=== PATIENT | male | born 1950 | race Caucasian/White ===

== ENCOUNTER 2016-11-28 16:51 | Observation (INO) | payer MEDICARE, OTHER ==
[~2016-11-28] VITALS: Ht 170.2 cm; Wt 114.8 kg
[~2016-11-28 16:51] MED LIST: (None)10 MG OR; ACETIC ACID2 % AU; ACTOPLUS M15 MG/850 OR; ALLOPURINOL300 MG OR; ALLOPURINOL300 MG PO; AMILORIDE5 MG PO; ARTIFICIAL TEARS OP; ASPIRIN EC81 MG PO; ATENOLOL50 MG PO; B-12500 MCG SL; BAYER ASA325 MG OR; CALCI PO; CETRAXAL0.2 % AS; CIPRO500 MG OR; CIPRO500 MG PO; CIPRODEX1 ML AS; CIPROFLOXACN500 MG PO; CLINDAMYCIN300 MG PO; COLCHICINE0.6 MG OR; COLCHICINE0.6 MG PO; COLCRYS0.6 MG PO; DOXAZOSIN4 MG OR; DOXAZOSIN4 MG PO; FISH OIL1000 MG PO; GLIMEPIRIDE2 MG PO; INDOCIN50 MG/CAP PO; INDOMETHACIN50 MG PO; JANUVIA100 MG PO; LIPITOR10 MG PO; LIPITOR20 MG OR; LIPITOR40 M1 PO; LIPITOR40 MG PO; LISINOPRIL10 MG PO; LORTAB 7.5 PO; LORTAB5 PO; MAGNESIUM250 M1 PO; METFORMIN1000 MG PO; MULTI COMPLETE PO; NITROSTAT0.4 MG SL; ONE TOUCH ULTRA 100 XX; ONETOUCH DELICA30 G SC; OXYCO/APAP1 TA5 PO; PERCOCET 5/325M1 TAB OR; PLAVIX75 MG PO; SKELAXIN800 MG PO; SLOW MAGNESIUM PO; STOOL SOFTEN1 TAB OR; TIZANIDINE4 MG PO; TRICOR48 MG OR; VIAGRA100 MG PO; VITAMIN B-121000 MCG PO; VITAMIN D2000 UNI1 OR; ZITHROMAX250 MG PO
[2016-11-28 17:52] LABS: HEMATOCRIT 29.4 % (39.0-50.0); HEMOGLOBIN 9.7 g/dl (14.0-18.0); IMMATURE GRANULOCYTES 0.8 % (0.0-1.0); MEAN CELL VOLUME 93.9 fL CALC (80.0-100.0); NEUT# 1.63 thou/uL (1.82-7.42); RED BLOOD COUNT 3.13 mill/uL (4.70-6.10)
[2016-11-28 18:58] LABS: ALBUMIN 3.1 g/dL (3.2-5.0); BILIRUBIN, TOTAL 0.9 mg/dL (0.0-1.4); CALCIUM 9.2 mg/dL (8.4-10.2); CREATININE 1.6 mg/dL (0.7-1.3); POTASSIUM 4.2 mmol/l (3.5-5.1); TOTAL PROTEIN 6.3 g/dL (6.3-8.2)
[2016-11-28] MEDS ORDERED: HYDROCHLOROT25 MG PO (19:26)
[2016-11-28 19:30] VITALS: BP 146/73
[2016-11-28 21:43] LABS: URINE BILIRUBIN - DIPSTICK NEGATIVE (NEGATIVE); URINE BLOOD DIPSTICK LARGE (NEGATIVE); URINE CLARITY CLEAR; URINE COLOR YELLOW; URINE GLUCOSE - DIPSTICK NEGATIVE (NEGATIVE); URINE KETONE NEGATIVE (NEGATIVE); URINE LEUK ESTERASE NEGATIVE (NEGATIVE); URINE NITRITE - DIPSTICK NEGATIVE (Negative); URINE PROTEIN - DIPSTICK TRACE mg/dL (NEG-TRACE); URINE UROBILINOGEN - DIPSTICK 0.2 E.U./dL (0.2)
[2016-11-28 21:57] LABS: URINE RBC TNTC RBC/hpf (0-5); URINE SQUAMOUS EPITHELIAL CELL FEW EPI/hpf (0-FEW)
[2016-11-29 00:22] VITALS: BP 140/61
[2016-11-29 04:37] VITALS: BP 145/67
[2016-11-29 06:33] LABS: HEMATOCRIT 28.6 % (39.0-50.0); HEMOGLOBIN 9.4 g/dl (14.0-18.0); IMMATURE GRANULOCYTES 0.4 % (0.0-1.0); MEAN CORPUSCULAR HGB 31.2 pG CALC (26.0-32.0); MEAN CORPUSCULAR HGB CONC 32.9 g/L CALC (32.0-36.0); NEUT# 1.51 thou/uL (1.82-7.42); RED BLOOD COUNT 3.01 mill/uL (4.70-6.10); RED CELL DISTRI WIDTH 15.9 % (11.5-15.5)
[2016-11-29 06:48] LABS: ANION GAP 12 (6-22 (CALC)); BUN 29 mg/dL (8-23); BUN/CREATININE RATIO 24 (12-20 (CALC)); CALCIUM 9.3 mg/dL (8.4-10.2); CARBON DIOXIDE 19 mmol/l (22-30); CHLORIDE 113 mmol/l (95-108); CREATININE 1.2 mg/dL (0.7-1.3); GFR 60 ML/MIN (>=60 (CALC)); GFR FOR AFR.AMER. > 60 ML/MIN (>=60 (CALC)); GLUCOSE 83 mg/dL (82-115); POTASSIUM 3.8 mmol/l (3.5-5.1); SODIUM 140 mmol/l (137-146)
[2016-11-29 08:15] VITALS: BP 121/53
[2016-11-29 10:36] LABS: CHOLESTEROL HDL RATIO 2.7 (<4.4 (CALC))
[2016-11-29 11:10] VITALS: BP 149/74
[2016-11-29 12:25] VITALS: BP 118/60; BP 123/58; BP 140/66
[2016-11-29] MEDS ORDERED: DOXAZOSIN4 MG PO (13:03)
== END 2016-11-29 14:53 | disposition home or self-care (01) ==
LOC: ED 16:51 → ED-I 18:29 → ED 18:45 → ICU 18:46 → MS2 18:46
PROVIDERS: Emergency Medicine; Nurse Practitioner Family; ADMIT Internal Medicine; ATTEND Internal Medicine
DX: E86.0 Dehydration (principal); I13.10 Hypertensive heart and chronic kidney disease without heart failure, with stage 1 through stage 4 chronic kidney disease, or unspecified chronic kidney disease; N18.2 Chronic kidney disease, stage 2 (mild); E11.22 Type 2 diabetes mellitus with diabetic chronic kidney disease; I25.10 Atherosclerotic heart disease of native coronary artery without angina pectoris; M10.9 Gout, unspecified; E78.5 Hyperlipidemia, unspecified; H54.8 Legal blindness, as defined in USA; D63.1 Anemia in chronic kidney disease; N17.9 Acute kidney failure, unspecified; D61.818 Other pancytopenia; N40.0 Benign prostatic hyperplasia without lower urinary tract symptoms; R07.89 Other chest pain; E83.42 Hypomagnesemia; E87.6 Hypokalemia; Z95.5 Presence of coronary angioplasty implant and graft
CPT/HCPCS: J0692

== ENCOUNTER 2018-01-30 20:21 | Inpatient (IN) | payer MEDICARE, OTHER ==
[~2018-01-30] VITALS: Ht 170.2 cm; Wt 98.1 kg
[~2018-01-30 20:21] MED LIST changes: +HYDROCHLOROT25 MG PO
[2018-01-30 22:02] LABS: ALBUMIN 3.1 g/dL (3.2-5.0); BILIRUBIN, TOTAL 0.7 mg/dL (0.0-1.4); CREATININE 1.8 mg/dL (0.7-1.3); TOTAL PROTEIN 6.4 g/dL (6.3-8.2)
[2018-01-30 22:15] LABS: POTASSIUM 7.3 mmol/l (3.5-5.1)
[2018-01-30 22:17] LABS: HEMATOCRIT 28.8 % (39.0-50.0); HEMOGLOBIN 9.5 g/dl (14.0-18.0); IMMATURE GRANULOCYTES 0.5 % (0.0-5.0); MEAN CELL VOLUME 99.3 fL CALC (80.0-100.0); MEAN CORPUSCULAR HGB 32.8 pG CALC (26.0-32.0); NEUT# 1.33 thou/uL (1.82-7.42); RED BLOOD COUNT 2.9 mill/uL (4.70-6.10); RED CELL DISTRI WIDTH 15.9 % (11.5-15.5)
[2018-01-31] VITALS (7 sets, daily range): BP systolic 116–141; BP diastolic 60–70
[2018-01-31 05:31] LABS: CREATININE 1.5 mg/dL (0.7-1.3)
[2018-01-31 05:34] LABS: POTASSIUM 6.5 mmol/l (3.5-5.1)
[2018-01-31 05:56] LABS: HEMATOCRIT 26.6 % (39.0-50.0); HEMOGLOBIN 8.7 g/dl (14.0-18.0); IMMATURE GRANULOCYTES 1.2 % (0.0-5.0); MEAN CORPUSCULAR HGB 32.7 pG CALC (26.0-32.0); MEAN CORPUSCULAR HGB CONC 32.7 g/L CALC (32.0-36.0); RED BLOOD COUNT 2.66 mill/uL (4.70-6.10); RED CELL DISTRI WIDTH 15.8 % (11.5-15.5)
[2018-01-31 05:57] LABS: PLATELET COUNT 35 thou/uL (130-400)
[2018-01-31 05:58] LABS: ACANTHOCYTES FEW; BASOPHIL 1.8 % (0-3); EOSINOPHIL 1.2 % (0-8); LYMPH 21.5 % (15-41); MANUAL DIFFERENTIAL YES; MONOCYTE 12.3 % (2-13); OVALOCYTES FEW; PLATELET ESTIMATE MARKED DECREASE; TEAR DROP CELLS FEW
[2018-01-31 10:30] LABS: HEMATOCRIT 28.7 % (39.0-50.0); HEMOGLOBIN 9.3 g/dl (14.0-18.0); MEAN CELL VOLUME 101.8 fL CALC (80.0-100.0); MEAN CORPUSCULAR HGB CONC 32.4 g/L CALC (32.0-36.0); NEUT# 0.99 thou/uL (1.82-7.42); RED BLOOD COUNT 2.82 mill/uL (4.70-6.10); RED CELL DISTRI WIDTH 15.9 % (11.5-15.5)
[2018-01-31 11:02] LABS: BUN 28 mg/dL (8-23); BUN/CREATININE RATIO 20 (12-20 (CALC)); CARBON DIOXIDE 16 mmol/l (22-30); CHLORIDE 119 mmol/l (95-108); CREATININE 1.4 mg/dL (0.7-1.3); GFR 50 ML/MIN (>=60 (CALC)); GFR FOR AFR.AMER. > 60 ML/MIN (>=60 (CALC)); SODIUM 142 mmol/l (137-146)
[2018-01-31 11:04] LABS: ANION GAP 12 (6-22 (CALC)); POTASSIUM 5.4 mmol/l (3.5-5.1)
[2018-01-31 14:02] LABS: INTERNATIONAL NORMALIZED RATIO 2.7 RATIO (0.7-1.3); PROTHROMBIN TIME 28.4 SECONDS (9.0-12.5)
[2018-02-01 04:05] VITALS: BP 113/69
[2018-02-01 05:22] LABS: HEMOGLOBIN 8.6 g/dl (14.0-18.0); MEAN CELL VOLUME 98.9 fL CALC (80.0-100.0); MEAN CORPUSCULAR HGB 32.7 pG CALC (26.0-32.0); MEAN CORPUSCULAR HGB CONC 33.1 g/L CALC (32.0-36.0); NEUT# 0.84 thou/uL (1.82-7.42); RED BLOOD COUNT 2.63 mill/uL (4.70-6.10); RED CELL DISTRI WIDTH 15.6 % (11.5-15.5)
[2018-02-01 05:33] LABS: ALBUMIN 2.3 g/dL (3.2-5.0); ALKALINE PHOSPHATASE 207 u/l (38-126); ANION GAP 10 (6-22 (CALC)); BILIRUBIN, TOTAL 0.7 mg/dL (0.0-1.4); BUN 25 mg/dL (8-23); BUN/CREATININE RATIO 19 (12-20 (CALC)); CARBON DIOXIDE 17 mmol/l (22-30); CHLORIDE 118 mmol/l (95-108); CREATININE 1.3 mg/dL (0.7-1.3); GFR 55 ML/MIN (>=60 (CALC)); GFR FOR AFR.AMER. > 60 ML/MIN (>=60 (CALC)); MAGNESIUM 1.3 mg/dL (1.6-2.3); SGOT/AST 50 u/l (19-48); SODIUM 139 mmol/l (137-146); TOTAL PROTEIN 5.1 g/dL (6.3-8.2)
[2018-02-01 08:11] VITALS: BP 117/60
[2018-02-01 11:30] VITALS: BP 119/61
[2018-02-01 15:51] VITALS: BP 134/65
== END 2018-02-01 15:55 | disposition home or self-care (01) | DRG 641 ==
LOC: ED 20:21 → ED-I 23:40 → ED 01-31 00:14 → MS2 01-31 00:15
PROVIDERS: Emergency Medicine; Internal Medicine; ADMIT Internal Medicine Nephrology; ATTEND Internal Medicine Nephrology
DX: E87.5 Hyperkalemia (principal); K76.6 Portal hypertension; D61.818 Other pancytopenia; N17.9 Acute kidney failure, unspecified; E83.42 Hypomagnesemia; E87.2 Acidosis; I12.9 Hypertensive chronic kidney disease with stage 1 through stage 4 chronic kidney disease, or unspecified chronic kidney disease; E11.22 Type 2 diabetes mellitus with diabetic chronic kidney disease; N18.2 Chronic kidney disease, stage 2 (mild); T50.0X5A Adverse effect of mineralocorticoids and their antagonists, initial encounter; I25.10 Atherosclerotic heart disease of native coronary artery without angina pectoris; I48.0 Paroxysmal atrial fibrillation; K74.60 Unspecified cirrhosis of liver; R16.0 Hepatomegaly, not elsewhere classified; D70.9 Neutropenia, unspecified; E78.5 Hyperlipidemia, unspecified; M10.9 Gout, unspecified; G47.33 Obstructive sleep apnea (adult) (pediatric); N40.0 Benign prostatic hyperplasia without lower urinary tract symptoms; Z79.02 Long term (current) use of antithrombotics/antiplatelets; Z95.5 Presence of coronary angioplasty implant and graft; Z79.01 Long term (current) use of anticoagulants

== ENCOUNTER → 2018-05-31 | Outpatient (REF) | payer MEDICARE, OTHER ==
[2018-05-31 07:59] LABS: HEMATOCRIT 30.9 % (39.0-50.0); MEAN CELL VOLUME 93.6 fL CALC (80.0-100.0); MEAN CORPUSCULAR HGB 30.3 pG CALC (26.0-32.0); MEAN CORPUSCULAR HGB CONC 32.4 g/L CALC (32.0-36.0); RED BLOOD COUNT 3.3 mill/uL (4.70-6.10); RED CELL DISTRI WIDTH 15.8 % (11.5-15.5)
[2018-05-31 08:47] LABS: ALBUMIN 3.3 g/dL (3.2-5.0); BILIRUBIN, TOTAL 0.8 mg/dL (0.0-1.4); CREATININE 1.7 mg/dL (0.7-1.3); POTASSIUM 3.5 mmol/l (3.5-5.1); TOTAL PROTEIN 6.2 g/dL (6.3-8.2)
[2018-05-31 09:08] LABS: TSH, 3RD GENERATION 1.86 uIU/mL (0.47 - 4.68)
== END | disposition home or self-care (01) ==
LOC: LAB 07:26
PROVIDERS: ATTEND Nurse Practitioner Adult Health
DX: E13.610 Other specified diabetes mellitus with diabetic neuropathic arthropathy (principal); K74.69 Other cirrhosis of liver; N18.3 Chronic kidney disease, stage 3 (moderate)

== ENCOUNTER 2018-10-15 09:29 | Observation (INO) | payer MEDICARE, OTHER ==
[~2018-10-15] VITALS: Ht 170.2 cm; Wt 98.9 kg
[2018-10-15] MEDS ORDERED: FUROSEMIDE40 MG PO (10:23)
[2018-10-15] MEDS ORDERED: GLIMEPIRIDE2 MG PO (10:24)
[2018-10-15] MEDS ORDERED: ATENOLOL25 MG PO (10:24)
[2018-10-15] MEDS ORDERED: SINGULAIR10 MG PO (10:25)
[2018-10-15] MEDS ORDERED: VITAMIN B-1100 M1 PO (10:25)
[2018-10-15] MEDS ORDERED: ALLOPURINOL300 MG PO (10:25)
[2018-10-15] MEDS ORDERED: OCUVITE PO (10:26)
[2018-10-15] MEDS ORDERED: ASPIRIN LOW DOS81 M1 PO (10:27)
[2018-10-15 11:00] LABS: HEMATOCRIT 31.4 % (39.0-50.0); HEMOGLOBIN 10.5 g/dl (14.0-18.0); MEAN CELL VOLUME 92.6 fL CALC (80.0-100.0); MEAN CORPUSCULAR HGB CONC 33.4 g/L CALC (32.0-36.0); NEUT# 2.07 thou/uL (1.82-7.42); RED BLOOD COUNT 3.39 mill/uL (4.70-6.10); RED CELL DISTRI WIDTH 15.7 % (11.5-15.5)
[2018-10-15 11:24] LABS: ALBUMIN 3.6 g/dL (3.2-5.0); BILIRUBIN, TOTAL 0.8 mg/dL (0.0-1.4); CREATININE 2.1 mg/dL (0.7-1.3); POTASSIUM 3.8 mmol/l (3.5-5.1); TOTAL PROTEIN 6.9 g/dL (6.3-8.2)
[2018-10-15 12:38] LABS: URINE BILIRUBIN - DIPSTICK NEGATIVE (NEGATIVE); URINE BLOOD DIPSTICK SMALL (NEGATIVE); URINE COLOR YELLOW; URINE GLUCOSE - DIPSTICK NEGATIVE (NEGATIVE); URINE KETONE NEGATIVE (NEGATIVE); URINE LEUK ESTERASE NEGATIVE (Negative); URINE NITRITE - DIPSTICK NEGATIVE (Negative); URINE PH 7.5 (4.5-8.0); URINE PROTEIN - DIPSTICK NEGATIVE (NEG-TRACE); URINE UROBILINOGEN - DIPSTICK 0.2 E.U./dL (0.2)
[2018-10-15 12:41] LABS: URINE CLARITY SL CLOUDY; URINE RBC 0-2 RBC/hpf (0-5)
[2018-10-15 15:30] VITALS: BP 156/65
[2018-10-15] MEDS ORDERED: PROTONIX40 M2 PO (16:50)
[2018-10-15 19:05] VITALS: BP 148/64
[2018-10-15 23:47] VITALS: BP 147/75
[2018-10-16 03:28] VITALS: BP 125/50
[2018-10-16 03:59] LABS: HEMATOCRIT 27.6 % (39.0-50.0); HEMOGLOBIN 9.2 g/dl (14.0-18.0); IMMATURE GRANULOCYTES 0.3 % (0.0-5.0); MEAN CELL VOLUME 92.6 fL CALC (80.0-100.0); MEAN CORPUSCULAR HGB 30.9 pG CALC (26.0-32.0); MEAN CORPUSCULAR HGB CONC 33.3 g/L CALC (32.0-36.0); NEUT# 2.03 thou/uL (1.82-7.42); RED BLOOD COUNT 2.98 mill/uL (4.70-6.10); RED CELL DISTRI WIDTH 15.8 % (11.5-15.5)
[2018-10-16 04:08] LABS: BILIRUBIN, TOTAL 0.9 mg/dL (0.0-1.4); CREATININE 1.6 mg/dL (0.7-1.3); MAGNESIUM 2.1 mg/dL (1.6-2.3); POTASSIUM 3.5 mmol/l (3.5-5.1); TOTAL PROTEIN 6.2 g/dL (6.3-8.2)
[2018-10-16 08:00] VITALS: BP 140/96
[2018-10-16 11:15] VITALS: BP 155/67
[2018-10-16 17:13] VITALS: BP 131/61
[2018-10-16 19:10] VITALS: BP 148/59
[2018-10-16 23:00] VITALS: BP 147/60
[2018-10-17 03:53] VITALS: BP 125/53
[2018-10-17 05:23] LABS: HEMATOCRIT 29.3 % (39.0-50.0); HEMOGLOBIN 9.7 g/dl (14.0-18.0); MEAN CELL VOLUME 94.2 fL CALC (80.0-100.0); MEAN CORPUSCULAR HGB 31.2 pG CALC (26.0-32.0); MEAN CORPUSCULAR HGB CONC 33.1 g/L CALC (32.0-36.0); NEUT# 1.57 thou/uL (1.82-7.42); RED BLOOD COUNT 3.11 mill/uL (4.70-6.10); RED CELL DISTRI WIDTH 15.9 % (11.5-15.5)
[2018-10-17 05:35] LABS: ALBUMIN 2.8 g/dL (3.2-5.0); ALKALINE PHOSPHATASE 173 u/l (38-126); ANION GAP 9 (6-22 (CALC)); BILIRUBIN, TOTAL 0.8 mg/dL (0.0-1.4); BUN 30 mg/dL (8-23); BUN/CREATININE RATIO 24 (12-20 (CALC)); CARBON DIOXIDE 19 mmol/l (22-30); CHLORIDE 117 mmol/l (95-108); CREATININE 1.3 mg/dL (0.7-1.3); GFR 55 ML/MIN (>=60 (CALC)); GFR FOR AFR.AMER. > 60 ML/MIN (>=60 (CALC)); MAGNESIUM 1.8 mg/dL (1.6-2.3); POTASSIUM 3.9 mmol/l (3.5-5.1); SGOT/AST 45 u/l (19-48); SODIUM 141 mmol/l (137-146); TOTAL PROTEIN 5.7 g/dL (6.3-8.2)
[2018-10-17 08:00] VITALS: BP 141/67
[2018-10-17 10:45] VITALS: BP 155/67
[2018-10-17] MEDS ORDERED: GENERLAC10 GM/15 M PO (13:43)
== END 2018-10-17 14:03 | disposition home or self-care (01) ==
LOC: ED 09:29 → ED-I 13:22 → ED 13:45 → MS2 13:47
PROVIDERS: Emergency Medicine; ADMIT Internal Medicine Nephrology; ATTEND Internal Medicine Nephrology
DX: K72.90 Hepatic failure, unspecified without coma (principal); N17.9 Acute kidney failure, unspecified; E86.0 Dehydration; E87.2 Acidosis; K74.60 Unspecified cirrhosis of liver; E72.20 Disorder of urea cycle metabolism, unspecified; I12.9 Hypertensive chronic kidney disease with stage 1 through stage 4 chronic kidney disease, or unspecified chronic kidney disease; E11.22 Type 2 diabetes mellitus with diabetic chronic kidney disease; N18.3 Chronic kidney disease, stage 3 (moderate); D63.1 Anemia in chronic kidney disease; D61.818 Other pancytopenia; I25.10 Atherosclerotic heart disease of native coronary artery without angina pectoris; H54.8 Legal blindness, as defined in USA; I48.2 Chronic atrial fibrillation; M10.9 Gout, unspecified; E83.42 Hypomagnesemia; E87.5 Hyperkalemia; N40.0 Benign prostatic hyperplasia without lower urinary tract symptoms; R97.0 Elevated carcinoembryonic antigen [CEA]; Z95.5 Presence of coronary angioplasty implant and graft; Z79.84 Long term (current) use of oral hypoglycemic drugs; Z79.01 Long term (current) use of anticoagulants

== ENCOUNTER 2018-12-25 15:31 | Observation (INO) | payer MEDICARE, OTHER ==
[~2018-12-25] VITALS: Ht 170.2 cm; Wt 99.8 kg
[~2018-12-25 15:31] MED LIST changes: +ASPIRIN LOW DOS81 M1 PO; +ATENOLOL25 MG PO; -CALCI PO; +GENERLAC10 GM/15 M PO; +LASIX40 MG PO; +OCUVITE PO; +PROTONIX40 M2 PO; +SINGULAIR10 MG PO; -SLOW MAGNESIUM PO; +SLOW-MAG PO; +VITAMIN B-1100 M1 PO
[2018-12-25 16:55] LABS: HEMATOCRIT 31.7 % (39.0-50.0); HEMOGLOBIN 10.6 g/dl (14.0-18.0); IMMATURE GRANULOCYTES 0.3 % (0.0-5.0); MEAN CELL VOLUME 96.1 fL CALC (80.0-100.0); MEAN CORPUSCULAR HGB 32.1 pG CALC (26.0-32.0); MEAN CORPUSCULAR HGB CONC 33.4 g/L CALC (32.0-36.0); NEUT# 2.64 thou/uL (1.82-7.42); RED BLOOD COUNT 3.3 mill/uL (4.70-6.10); RED CELL DISTRI WIDTH 15.5 % (11.5-15.5)
[2018-12-25] MEDS ORDERED: ATORVASTATIN CA20 MG PO (17:00)
[2018-12-25] MEDS ORDERED: MULTIVITAMI1 PO (17:01)
[2018-12-25] MEDS ORDERED: ADLT ASA LOW81 MG PO (17:02)
[2018-12-25] MEDS ORDERED: [UNRECOGNIZED DRUG - OTHER] PO (17:03)
[2018-12-25 17:06] LABS: URINE BILIRUBIN - DIPSTICK NEGATIVE (NEGATIVE); URINE BLOOD DIPSTICK MODERATE (NEGATIVE); URINE COLOR YELLOW; URINE GLUCOSE - DIPSTICK NEGATIVE (NEGATIVE); URINE KETONE NEGATIVE (NEGATIVE); URINE LEUK ESTERASE NEGATIVE (NEGATIVE); URINE NITRITE - DIPSTICK NEGATIVE (Negative); URINE PROTEIN - DIPSTICK NEGATIVE (NEG-TRACE); URINE UROBILINOGEN - DIPSTICK 0.2 E.U./dL (0.2)
[2018-12-25 17:08] LABS: URINE WBC 0-2 WBC/hpf (0-5)
[2018-12-25 17:27] LABS: ALBUMIN 3.4 g/dL (3.2-5.0); CREATININE 1.5 mg/dL (0.7-1.3); INTERNATIONAL NORMALIZED RATIO 1.2 RATIO (0.7-1.3); PROTHROMBIN TIME 12.9 SECONDS (9.0-12.5); TOTAL PROTEIN 6.6 g/dL (6.3-8.2)
[2018-12-25 17:30] LABS: BILIRUBIN, TOTAL 1.5 mg/dL (0.0-1.4)
[2018-12-25 18:30] VITALS: BP 160/73
[2018-12-25 23:35] VITALS: BP 138/73
[2018-12-26] VITALS (15 sets, daily range): BP systolic 123–160; BP diastolic 52–74
[2018-12-26 04:51] LABS: HEMATOCRIT 31.4 % (39.0-50.0); HEMOGLOBIN 10.6 g/dl (14.0-18.0); MEAN CORPUSCULAR HGB 32.4 pG CALC (26.0-32.0); MEAN CORPUSCULAR HGB CONC 33.8 g/L CALC (32.0-36.0); RED BLOOD COUNT 3.27 mill/uL (4.70-6.10); RED CELL DISTRI WIDTH 15.4 % (11.5-15.5)
[2018-12-26 05:05] LABS: ANION GAP 10 (6-22 (CALC)); BUN 32 mg/dL (8-23); BUN/CREATININE RATIO 23 (12-20 (CALC)); CARBON DIOXIDE 24 mmol/l (22-30); CHLORIDE 112 mmol/l (95-108); CREATININE 1.4 mg/dL (0.7-1.3); GFR 50 ML/MIN (>=60 (CALC)); GFR FOR AFR.AMER. > 60 ML/MIN (>=60 (CALC)); POTASSIUM 3.9 mmol/l (3.5-5.1); SODIUM 142 mmol/l (137-146)
[2018-12-26 10:01] LABS: HEMATOCRIT 31.5 % (39.0-50.0); HEMOGLOBIN 10.6 g/dl (14.0-18.0); IMMATURE GRANULOCYTES 0.3 % (0.0-5.0); MEAN CELL VOLUME 95.2 fL CALC (80.0-100.0); MEAN CORPUSCULAR HGB CONC 33.7 g/L CALC (32.0-36.0); NEUT# 1.81 thou/uL (1.82-7.42); RED BLOOD COUNT 3.31 mill/uL (4.70-6.10); RED CELL DISTRI WIDTH 15.4 % (11.5-15.5)
[2018-12-26 11:26] LABS: HEMATOCRIT 29.9 % (39.0-50.0); HEMOGLOBIN 9.9 g/dl (14.0-18.0); MEAN CELL VOLUME 97.4 fL CALC (80.0-100.0); MEAN CORPUSCULAR HGB 32.2 pG CALC (26.0-32.0); MEAN CORPUSCULAR HGB CONC 33.1 g/L CALC (32.0-36.0); NEUT# 1.72 thou/uL (1.82-7.42); RED BLOOD COUNT 3.07 mill/uL (4.70-6.10); RED CELL DISTRI WIDTH 15.6 % (11.5-15.5)
[2018-12-27 00:32] VITALS: BP 130/66
[2018-12-27 04:49] VITALS: BP 126/70
[2018-12-27 05:35] LABS: HEMATOCRIT 33.4 % (39.0-50.0); MEAN CELL VOLUME 97.1 fL CALC (80.0-100.0); MEAN CORPUSCULAR HGB CONC 32.9 g/L CALC (32.0-36.0); RED BLOOD COUNT 3.44 mill/uL (4.70-6.10); RED CELL DISTRI WIDTH 15.5 % (11.5-15.5)
[2018-12-27 05:38] LABS: CREATININE 1.5 mg/dL (0.7-1.3); POTASSIUM 4.2 mmol/l (3.5-5.1)
[2018-12-27 08:00] VITALS: BP 127/53
[2018-12-27] MEDS ORDERED: PERCOCET 5/325M1 TAB PO (09:02)
[2018-12-27] MEDS ORDERED: CLARITIN10 M2 PO (09:13)
[2018-12-27] MEDS ORDERED: FLONASE AL50 MCG/ACT NAB (09:13)
[2018-12-27 09:22] VITALS: BP 127/53
== END 2018-12-27 12:30 | disposition home or self-care (01) ==
LOC: ED 15:31 → ED-I 16:44 → ED 17:01 → MS2 17:02
PROVIDERS: Family Medicine; Nurse Anesthetist, Certified Registered; Surgery; ADMIT Internal Medicine; ATTEND Internal Medicine
PROC: 30233R1 Transfusion of Nonautologous Platelets into Peripheral Vein, Percutaneous Approach (ICD-10-PCS; principal; 2018-12-26)
PROC: 30233R1 Transfusion of Nonautologous Platelets into Peripheral Vein, Percutaneous Approach (ICD-10-PCS; 2018-12-26)
PROC: 0WUF0JZ Supplement Abdominal Wall with Synthetic Substitute, Open Approach (ICD-10-PCS; 2018-12-26)
DX: K43.0 Incisional hernia with obstruction, without gangrene (principal); K42.9 Umbilical hernia without obstruction or gangrene; E11.22 Type 2 diabetes mellitus with diabetic chronic kidney disease; I12.9 Hypertensive chronic kidney disease with stage 1 through stage 4 chronic kidney disease, or unspecified chronic kidney disease; N18.2 Chronic kidney disease, stage 2 (mild); K74.60 Unspecified cirrhosis of liver; D61.818 Other pancytopenia; R16.2 Hepatomegaly with splenomegaly, not elsewhere classified; D63.1 Anemia in chronic kidney disease; I48.91 Unspecified atrial fibrillation; I25.10 Atherosclerotic heart disease of native coronary artery without angina pectoris; E78.5 Hyperlipidemia, unspecified; H54.8 Legal blindness, as defined in USA; Z79.82 Long term (current) use of aspirin; Z95.5 Presence of coronary angioplasty implant and graft; Z79.84 Long term (current) use of oral hypoglycemic drugs
CPT/HCPCS: P9034; Q9967

== ENCOUNTER 2019-06-24 | Emergency (ER) | payer MEDICARE, OTHER ==
[~2019-06-24] MED LIST changes: +ADLT ASA LOW81 MG PO; +ATORVASTATIN CA20 MG PO; +CLARITIN10 M2 PO; +FLONASE AL50 MCG/ACT NAB; +MULTIVITAMI1 PO; +PERCOCET 5/325M1 TAB PO; +[UNRECOGNIZED DRUG - OTHER] PO
== END 2019-06-24 10:26 | disposition home or self-care (01) ==
DX: M25.561 Pain in right knee (principal); S90.01XA Contusion of right ankle, initial encounter; E11.22 Type 2 diabetes mellitus with diabetic chronic kidney disease; I12.9 Hypertensive chronic kidney disease with stage 1 through stage 4 chronic kidney disease, or unspecified chronic kidney disease; N18.9 Chronic kidney disease, unspecified; I48.91 Unspecified atrial fibrillation; I25.10 Atherosclerotic heart disease of native coronary artery without angina pectoris; W01.0XXA Fall on same level from slipping, tripping and stumbling without subsequent striking against object, initial encounter; Y92.009 Unspecified place in unspecified non-institutional (private) residence as the place of occurrence of the external cause; Z79.84 Long term (current) use of oral hypoglycemic drugs; Z95.5 Presence of coronary angioplasty implant and graft

== ENCOUNTER 2019-09-02 18:33 | Observation (INO) | payer MEDICARE, OTHER ==
[~2019-09-02] VITALS: Ht 170.2 cm; Wt 104.0 kg
--- NOTE | 2019-09-02 18:54 | NUR ---
PT TO ROOM FOR EXAM
--- NOTE | 2019-09-02 19:15 | NUR ---
IV STARTED/LABS DRAWN/MEDS GIVEN. PT RESTING. AT BEDSIDE. REGISTRATION AT BEDSIDE.
[2019-09-02 19:21] LABS: HEMATOCRIT 31.8 % (39.0-50.0); HEMOGLOBIN 10.5 g/dl (14.0-18.0); MEAN CELL VOLUME 94.4 fL CALC (80.0-100.0); MEAN CORPUSCULAR HGB 31.2 pG CALC (26.0-32.0); NEUT# 1.92 thou/uL (1.82-7.42); RED BLOOD COUNT 3.37 mill/uL (4.70-6.10); RED CELL DISTRI WIDTH 15.5 % (11.5-15.5)
[2019-09-02 19:40] LABS: ACT PARTIAL THROMBO TIME 29.4 SECONDS (20.0-32.5); INTERNATIONAL NORMALIZED RATIO 1.2 RATIO (0.7-1.3); PROTHROMBIN TIME 12.7 SECONDS (9.0-12.5)
[2019-09-02 19:41] LABS: ALBUMIN 3.3 g/dL (3.2-5.0); ALKALINE PHOSPHATASE 201 u/l (38-126); AMYLASE 59 u/l (30-110); ANION GAP 8 (6-22 (CALC)); BILIRUBIN, TOTAL 1.2 mg/dL (0.0-1.4); BUN 37 mg/dL (8-23); BUN/CREATININE RATIO 23 (12-20 (CALC)); CARBON DIOXIDE 22 mmol/l (22-30); CHLORIDE 112 mmol/l (95-108); CREATININE 1.6 mg/dL (0.7-1.3); GFR 43 ML/MIN (>=60 (CALC)); GFR FOR AFR.AMER. 52 ML/MIN (>=60 (CALC)); LIPASE 256 u/l (23-300); MAGNESIUM 1.9 mg/dL (1.6-2.3); POTASSIUM 3.8 mmol/l (3.5-5.1); SGOT/AST 55 u/l (19-48); SODIUM 139 mmol/l (137-146); TOTAL PROTEIN 6.8 g/dL (6.3-8.2)
[2019-09-02] MEDS ORDERED: GABAPENTIN100 MG PO (19:50)
[2019-09-02 19:53] LABS: MYOGLOBIN 90 ng/mL (0 - 121)
[2019-09-02] MEDS ORDERED: VITAMIN B 6100 MG PO (19:54)
[2019-09-02] MEDS ORDERED: GENERLAC10 GM/15 M PO (19:58)
--- NOTE | 2019-09-02 20:31 | NUR ---
NO CHANGED AFTER NITRO. BP CAME DOWN NICELY BUT NO CHANGE IN PAIN. NOTIFIED AND NOW A GI COCKTAIL AND MORPHINE GIVEN.
--- NOTE | 2019-09-02 21:50 | NUR ---
HOME. AWARE OF NO VISITOR DO TO COVID PROTOCAL. PT FEELS BETTER. PAIN 04/27
--- NOTE | 2019-09-02 22:04 | NUR ---
REPORT TO THEO, MED SURG
--- NOTE | 2019-09-02 22:25 | NUR ---
TO FLOOR VIA W/C WITH MOLD BREAKER. STEVEN.
[2019-09-02 22:27] VITALS: BP 149/75
--- NOTE | 2019-09-02 22:27 | NUR ---
PT ARRIVED TO FLOOR VIA WHEELCHAIR. PT ALERT AND ORIENTED X3. NO APPARENT DISTRESS NOTED. PT AMBULATED FROM CHAIR TO BED WITH STEADY GAIT. ENGINE DYNAMOMETER TESTER IN PLACE. #20 LAC APPEARS CDI, FLUSHES WELL. PT DENIES ANY PAIN OR DISCOMFORT AT THIS TIME. PT IS LEGALLY BLIND HOWEVER CAN SEE THINGS UP CLOSE. DISCUSSED POC, PT VERBALIZED UNDERSTANDING. ORIENTED TO ROOM AND CALL LIGHT SYSTEM. CALL LIGHT WITHIN REACH. WILL CONTINUE TO MONITOR.
--- NOTE | 2019-09-03 02:30 | NUR ---
PT RESTING IN BED WITH EYES CLOSED. NO APPARENT DISTRESS NOTED. CALL LIGHT WITHIN REACH. WILL CONTINUE TO MONITOR.
[2019-09-03 04:07] VITALS: BP 125/56
--- NOTE | 2019-09-03 07:00 | NUR ---
REPORT RECEIVED FROM JOEL VENEGAS;PT RESTING IN SEMI FOWLERS POSITION;INTRODUCED SELF TO PT AND POC DISCUSSED;RESPIRATIONS EVEN AND UNLABORED ON RA;PT DENIES ANY CURRENT PAIN OR DISCOMFORTS;TELE MONITORING IN PLACE;PT ENCOURAGED TO CALL FOR ASSISTANCE IF NEEDED;FALL PRECAUTIONS IN PLACE WITH BED IN THE LOWEST POSITION AND CALL LIGHT IN REACH;WILL CONTINUE TO MONITOR
--- NOTE | 2019-09-03 08:00 | NUR ---
PT RESTING IN SEMI FOWLERS POSITION,A&O X3;VS OBTAINED AND ASSESSMENT COMPLETED;PT REPORTS LEFT SIDED CHEST PAIN/PRESSURE RATING 5/10 ON THE PAIN SCALE,JUAN ANDENY NOTIFIED;PT TO BE MEDICATED WITH PRN SL NITRO;PAIN SCALE AND REPORTING RE-EDUCATED;RESPIRATIONS EVEN AND UNLABORED ON RA,CLEAR LUNG SOUNDS;ABDOMEN SOFT ON PALPATION AND ACTIVE IN ALL 4 QUADRANTS;STRONG PEDAL PULSES;SKIN INTACT BUT GENERALIZED BRUISING NOTED TO BUE AND ABDOMEN;TELE MONITORING IN PLACE;#20G TO LAC FLUSHED AND PATENT,SITE APPEARS HEALTHY;ACCUCHECK 126, NO COVERAGE NEEDED AT THIS TIME;PT DENIES ANY ADDITIONAL NEEDS AND IS ENCOURAGED TO CALL FOR ASSISTANCE IF NEEDED;FALL PRECAUTIONS IN PLACE WITH CALL LIGHT IN REACH;WILL CONTINUE TO MONITOR
[2019-09-03 08:04] VITALS: BP 166/77
--- NOTE | 2019-09-03 08:23 | NUR ---
PT MEDICATED WITH PRN NITRO SL FOR CHEST PAIN RATING 5/10 ON THE PAIN SCALE.
[2019-09-03 08:34] VITALS: BP 128/74
--- NOTE | 2019-09-03 08:34 | NUR ---
PT REPORTS THAT CHEST PAIN HAS BEEN UNRELIEVED BY PRN NITRO SL AND THAT PAIN IS MORE MUSCULAR AT THIS TIME;BP RE-CHECK 128/74; NOTIFIED OF PAIN, NO NEW ORDERS RECEIVED AT THIS TIME;PT ENCOURAGED TO CALL FOR ASSISTANCE IF NEEDED;CALL LIGHT IN REACH;WILL CONTINUE TO MONITOR
--- NOTE | 2019-09-03 09:21 | NUR ---
LAB AND RT LEXX AT BEDSIDE OBTAINING EKG.
[2019-09-03 10:55] VITALS: BP 151/73
--- NOTE | 2019-09-03 11:30 | NUR ---
PT RESTING IN SEMI FOWLERS POSITION;RESPIRATIONS EVEN AND UNLABORED ON RA;PT REPORTS CHEST PAIN HAS STAYED THE SAME AT THIS TIME RATING 5/10 ON THE PAIN SCALE, STILL AWAITING PAIN MEDICATION ORDERS;TELE MONITORING IN PLACE;ACCUCHECK 190;PT DENIES ANY ADDITIONAL NEEDS AT THIS TIME AND IS ENCOURAGED TO CALL FOR ASSISTANCE IF NEEDED;CALL LIGHT IN REACH;WILL CONTINUE TO MONITOR
--- NOTE | 2019-09-03 12:00 | NUR ---
AT BEDSIDE DISCUSSING POC WITH PT.
--- NOTE | 2019-09-03 14:48 | NUR ---
CALLED DR. VEGA OFFICE REGARDING CONSULTATION. SPOKE TO LIZZIE AND GAVE PT INFORMATION AND SHE STATED SHE WILL LET DR. VEGA KNOW OF THE CONSULTATION.
[2019-09-03 15:30] VITALS: BP 145/72
--- NOTE | 2019-09-03 15:40 | NUR ---
PT RESTING IN SEMI FOWLERS POSITION;RESPIRATIONS EVEN AND UNLABORED ON RA;PT DENIES ANY CURRENT PAIN OR NEEDS;TELE MONITORING IN PLACE;IV SITE PATENT;AWAITING CONSULT FOR POTENTIAL D/C HOME, PT VERBALIZES UNDERSTANDING;DIET COLA PROVIDED PER REQUEST;PT DENIES ANY ADDITIONAL NEEDS AND IS ENCOURAGED TO CALL FOR ASSISTANCE IF NEEDED;CALL LIGHT IN REACH;WILL CONTINUE TO MONITOR
--- NOTE | 2019-09-03 15:57 | NUR ---
FRANCISCO CARVER FROM OFFICE AT BEDSIDE
--- NOTE | 2019-09-03 16:30 | NUR ---
ALL DISCHARGE INSTRUCTIONS PROVIDED AT THIS TIME;PT INSTRUCTED TO F/U WITH TOMORROW,APPT SET FOR 1330 FOR A HOLTER MONITOR APPLICATION;IV SITE REMOVED WITH CATHETER INTACT AND TELE MONITORING D/C;PT DENIES ANY ADDITIONAL QUESTIONS OR NEEDS;WHEELCHAIR TO BE PROVIDED FOR D/C HOME;SPOUSE TO TRANSPORT PT HOME.
--- NOTE | 2019-09-03 16:45 | NUR ---
Discharge instructions given. Patient verbalizes understanding of same. Discharged in stable condition via Wheelchair to Home with spouse. All belongings sent with pt. PT TRANSPORTED TO [facility] IN STABLE CONDITION VIA WHEELCHAIR ACCOMPANIED BY WRITTER.SPOUSE TO TRANSPORT PT HOME.
== END 2019-09-03 16:40 | disposition home or self-care (01) ==
LOC: ED 18:33 → ED-I 20:23 → ED 20:36 → ED-I 20:37 → MS2 20:37
PROVIDERS: ADMIT Internal Medicine; ATTEND Internal Medicine
DX: I25.119 Atherosclerotic heart disease of native coronary artery with unspecified angina pectoris (principal); I47.2 Ventricular tachycardia; D61.818 Other pancytopenia; K74.60 Unspecified cirrhosis of liver; E11.22 Type 2 diabetes mellitus with diabetic chronic kidney disease; I12.9 Hypertensive chronic kidney disease with stage 1 through stage 4 chronic kidney disease, or unspecified chronic kidney disease; N18.2 Chronic kidney disease, stage 2 (mild); E78.5 Hyperlipidemia, unspecified; H54.8 Legal blindness, as defined in USA; Z79.84 Long term (current) use of oral hypoglycemic drugs; Z95.5 Presence of coronary angioplasty implant and graft; Z79.82 Long term (current) use of aspirin
CPT/HCPCS: G0378; J1650

== ENCOUNTER 2020-01-09 07:06 | Inpatient (IN) | payer MEDICARE, OTHER ==
[~2020-01-09] VITALS: Ht 170.2 cm; Wt 91.4 kg
[~2020-01-09 07:06] MED LIST changes: +GABAPENTIN100 MG PO; +VITAMIN B 6100 MG PO
--- NOTE | 2020-01-09 07:12 | NUR ---
PT BROUGHT TO ROOM 12 VIA WHEELCHAIR. MED REC DONE. PHARMACY CONSULT ORDERED
[2020-01-09] MEDS ORDERED: PROPRANOLOL XX (07:26)
[2020-01-09 07:52] LABS: HEMATOCRIT 31.9 % (39.0-50.0); HEMOGLOBIN 10.6 g/dl (14.0-18.0); IMMATURE GRANULOCYTES 0.4 % (0.0-5.0); MEAN CELL VOLUME 93.5 fL CALC (80.0-100.0); MEAN CORPUSCULAR HGB 31.1 pG CALC (26.0-32.0); MEAN CORPUSCULAR HGB CONC 33.2 g/dL CAL (32.0-36.0); NEUT# 2.94 thou/uL (1.82-7.42); RED BLOOD COUNT 3.41 mill/uL (4.70-6.10); RED CELL DISTRI WIDTH 15.9 % (11.5-15.5)
[2020-01-09] MEDS ORDERED: SPIRONOLACT50 MG PO (08:02)
[2020-01-09] MEDS ORDERED: SINGULAIR10 MG PO (08:03)
[2020-01-09] MEDS ORDERED: FLONASE AL50 MCG/ACT (08:04)
[2020-01-09] MEDS ORDERED: LACTULOSE PO (08:04)
[2020-01-09] MEDS ORDERED: INDERAL 20MG TA20 MG PO (08:05)
[2020-01-09] MEDS ORDERED: GLIMEPIRIDE2 MG PO (08:05)
[2020-01-09 08:06] LABS: ALBUMIN 3.6 g/dL (3.2-5.0); ALKALINE PHOSPHATASE 213 u/l (38-126); CHLORIDE 118 mmol/l (95-108); CREATININE 1.9 mg/dL (0.7-1.3); GFR 35 ML/MIN (>=60 (CALC)); GFR FOR AFR.AMER. 42 ML/MIN (>=60 (CALC)); SGOT/AST 60 u/l (19-48); SODIUM 139 mmol/l (137-146); TOTAL PROTEIN 6.9 g/dL (6.3-8.2)
[2020-01-09] MEDS ORDERED: PROTONIX20 M1 PO (08:06)
[2020-01-09] MEDS ORDERED: ATORVASTATIN CA20 MG PO (08:06)
[2020-01-09 08:09] LABS: ANION GAP 12 (6-22 (CALC)); BUN 49 mg/dL (8-23); BUN/CREATININE RATIO 26 (12-20 (CALC)); CARBON DIOXIDE 14 mmol/l (22-30); POTASSIUM 5.4 mmol/l (3.5-5.1)
--- NOTE | 2020-01-09 08:12 | NUR ---
PT PLACED ON ISOLATION. POSITIVE IGG/IGM. SWAB PENDING.
[2020-01-09 08:36] LABS: TSH, 3RD GENERATION 4.58 uIU/mL (0.47 - 4.68)
--- NOTE | 2020-01-09 09:32 | NUR ---
PT STABLE. AT BEDSIDE. NO SIGNS OF DISTRESS. CALL LIGHT WITHIN REACH.
--- NOTE | 2020-01-09 09:45 | NUR ---
REPORT GIVEN TO RACHEAL ON MEDSURG. PT STABLE. ADVISED SHE COULD NOT REMAIN AT BEDSIDE WITH PT DUE TO ISOLATION PRECAUTIONS. VERBALIZED UNDERSTANDING.
[2020-01-09 09:56] LABS: INTERNATIONAL NORMALIZED RATIO 1.4 RATIO (0.7-1.3); PROTHROMBIN TIME 13.3 SECONDS (9.0-12.5)
[2020-01-09 11:00] VITALS: BP 118/60
--- NOTE | 2020-01-09 12:00 | NUR ---
PT. ARRIVED TO [facility] FLOOR ACCOMPANIED BY . ALERT AND VERBAL, ABLE TO VOICE NEEDS. ABLE TO GET UP TO BATHROOM. DENIES PAIN. IN NEGATIVE PRESSURE ROOM. POSITIVE IGG AND IGM. INSTRUCTED TO CALL FOR ASSIST.
[2020-01-09 16:00] VITALS: BP 111/67
--- NOTE | 2020-01-09 17:15 | NUR ---
PT. ALERT AND ORIENTED TO PLACE AND PERSON. PT. CAUTIONED TO CALL FOR HELP TO GET OUT OF BED. EDUCATED PT. THAT LACTULOSE WHICH HE WILL BE GETTING WILL STIMULATE HIM TO MOVE HIS BOWELS.
[2020-01-09 18:30] VITALS: BP 122/51
--- NOTE | 2020-01-09 20:00 | NUR ---
PATIENT ALERT, VERBAL WITH INT CONFUSION, ABLE TO MAKE NEEDS KNOWN. ABLE TO TOLERATE MEDS WELL WHOLE. PIV SITE PATENT TO LEFT AC--FLUSHES WELL--SITE UNREMARKABLE. NS INFUSING @ 50ML/HR WITHOUT DIFFICULTY--TOLERATING FLUIDS WELL. CONT OF BOWEL AND BLADDER--ABLE TO AMBULATE TO AND FROM BR WITH ONE ASSIST THIS SHIFT--SLIGHT UNSTEADY GAIT--COMPLIANT WITH USING CALL LIGHT TO CALL FOR ASSISTANCE. DENIES PAIN OR DISCOMFORT. AMMONIA LEVEL OF 187 TODAY--CONT TO RECEIVE LACTULOSE--COMPLIANT WITH MEDICATION. REMAINS ON AIRBORNE CONTACT PRECAUTIONS WELL--PENDING SWAB AT THIS TIME. WILL CONT TO MONITOR FOR ANY FURTHER CHANGES.
[2020-01-09 23:15] VITALS: BP 132/61
--- NOTE | 2020-01-10 | NUR ---
PATIENT RESTING SOUNDLY IN BED WITH EYES CLOSED AT THIS TIME. PIV SITE PATENT TO LEFT AC--FLUSHES WELL--SITE UNREMARKABLE. NS INFUSING WITHOUT DIFFICULTY @ 50ML/HR--TOLERATING FLUIDS WELL. REMAINS IN AIRBORNE CONTACT PRECAUTIONS WELL. NO APPARENT DISTRESS NOTED. WILL CONT TO MONITOR FOR ANY FURTHER CHANGES.
[2020-01-10 03:45] VITALS: BP 122/50
--- NOTE | 2020-01-10 04:00 | NUR ---
PATIENT RESTING SOUNDLY IN BED WITH EYES CLOSED AT THIS TIME. PIV SITE PATENT TO LEFT AC--FLUSHES WELL-SITE UNREMARKABLE--NS INFUSING @ 50ML/HR WITHOUT DIFFICULTY--TOLERATING FLUIDS WELL. NO APPARENT DISTRESS NOTED--REMAINS ON AIRBORNE CONTACT PRECAUTIONS WELL. WILL CONT TO MONITOR FOR ANY FURTHER CHANGES.
[2020-01-10 05:11] LABS: HEMATOCRIT 28.4 % (39.0-50.0); HEMOGLOBIN 9.3 g/dl (14.0-18.0); IMMATURE GRANULOCYTES 0.3 % (0.0-5.0); MEAN CELL VOLUME 95.3 fL CALC (80.0-100.0); MEAN CORPUSCULAR HGB 31.2 pG CALC (26.0-32.0); MEAN CORPUSCULAR HGB CONC 32.7 g/dL CAL (32.0-36.0); NEUT# 2.37 thou/uL (1.82-7.42); RED BLOOD COUNT 2.98 mill/uL (4.70-6.10)
[2020-01-10 05:37] LABS: BILIRUBIN, TOTAL 1.1 mg/dL (0.0-1.4); CREATININE 1.6 mg/dL (0.7-1.3); POTASSIUM 4.6 mmol/l (3.5-5.1); TOTAL PROTEIN 5.7 g/dL (6.3-8.2)
[2020-01-10 05:40] LABS: ALBUMIN 2.7 g/dL (3.2-5.0)
[2020-01-10 07:43] VITALS: BP 134/73
[2020-01-10 09:04] VITALS: BP 134/73
--- NOTE | 2020-01-10 09:42 | NUR ---
PT. UP TO BATHROOM FOR WATERY STOOL AT 807. ATE ALL OF BREAKFAST. HAS HAD 2 WATERY STOOLS THIS AM. BREATH SOUNDS CLEAR. BOWEL SOUNDS ACTIVE. PULSES PALPABLE. SPEECH CLEAR. DENIES PAIN.CONTINUES ON RESPIRATORY ISOLATION.
[2020-01-10 11:35] VITALS: BP 111/47
--- NOTE | 2020-01-10 11:47 | NUR ---
PT HAS BEEN DISCHARGED TO HOME. PT AND VERBALIZED UNDERSTANDING OF DC INSTRUCTION, TAKEN BY WHEELCHAIR TO VEHICLE. PT LEAVES [facility] IN STABLE CONDITION.
== END 2020-01-10 11:45 | disposition home or self-care (01) | DRG 442 ==
LOC: ED 07:06 → ED-I 08:40 → ED 09:08 → MS2 09:09
PROVIDERS: Family Medicine; Nurse Practitioner; ADMIT Internal Medicine; ATTEND Internal Medicine
DX: K72.90 Hepatic failure, unspecified without coma (principal); E72.20 Disorder of urea cycle metabolism, unspecified; K76.6 Portal hypertension; K74.60 Unspecified cirrhosis of liver; E87.5 Hyperkalemia; I12.9 Hypertensive chronic kidney disease with stage 1 through stage 4 chronic kidney disease, or unspecified chronic kidney disease; E11.22 Type 2 diabetes mellitus with diabetic chronic kidney disease; N18.3 Chronic kidney disease, stage 3 (moderate); I25.10 Atherosclerotic heart disease of native coronary artery without angina pectoris; E78.5 Hyperlipidemia, unspecified; T47.3X6A Underdosing of saline and osmotic laxatives, initial encounter; H54.8 Legal blindness, as defined in USA; G47.30 Sleep apnea, unspecified; I48.0 Paroxysmal atrial fibrillation; R76.8 Other specified abnormal immunological findings in serum; Z91.128 Patient's intentional underdosing of medication regimen for other reason; Z79.84 Long term (current) use of oral hypoglycemic drugs; Z95.5 Presence of coronary angioplasty implant and graft; Z20.828 Contact with and (suspected) exposure to other viral communicable diseases

== ENCOUNTER 2020-01-21 12:03 | Observation (INO) | payer MEDICARE, OTHER ==
[~2020-01-21] VITALS: Ht 170.2 cm; Wt 90.1 kg
[~2020-01-21 12:03] MED LIST changes: +FLONASE AL50 MCG/ACT; +INDERAL 20MG TA20 MG PO; +LACTULOSE PO; +PROPRANOLOL XX; +PROTONIX20 M1 PO; +SPIRONOLACT50 MG PO
--- NOTE | 2020-01-21 12:05 | NUR ---
PT TO ROOM VIA EMS STRETCHER FOR BEDSIDE TRIAGE
--- NOTE | 2020-01-21 12:15 | NUR ---
PROVIDER AT BEDSIDE.
--- NOTE | 2020-01-21 13:15 | NUR ---
PT RESTING NO NEW COMPLAINTS, OFFERED, CALL COCHRAN WITHIN REACH
[2020-01-21 13:34] LABS: HEMATOCRIT 28.9 % (39.0-50.0); IMMATURE GRANULOCYTES 0.6 % (0.0-5.0); MEAN CELL VOLUME 92.3 fL CALC (80.0-100.0); MEAN CORPUSCULAR HGB 31.9 pG CALC (26.0-32.0); MEAN CORPUSCULAR HGB CONC 34.6 g/dL CAL (32.0-36.0); NEUT# 2.37 thou/uL (1.82-7.42); RED BLOOD COUNT 3.13 mill/uL (4.70-6.10); RED CELL DISTRI WIDTH 15.5 % (11.5-15.5)
[2020-01-21 13:51] LABS: ALKALINE PHOSPHATASE 194 u/l (38-126); ANION GAP 12 (6-22 (CALC)); BILIRUBIN, TOTAL 1.5 mg/dL (0.0-1.4); BUN 43 mg/dL (8-23); BUN/CREATININE RATIO 24 (12-20 (CALC)); CARBON DIOXIDE 12 mmol/l (22-30); CHLORIDE 120 mmol/l (95-108); CREATININE 1.8 mg/dL (0.7-1.3); GFR 37 ML/MIN (>=60 (CALC)); GFR FOR AFR.AMER. 45 ML/MIN (>=60 (CALC)); LIPASE 401 u/l (23-300); POTASSIUM 4.7 mmol/l (3.5-5.1); SGOT/AST 53 u/l (19-48); SODIUM 139 mmol/l (137-146); TOTAL PROTEIN 6.3 g/dL (6.3-8.2)
--- NOTE | 2020-01-21 14:10 | NUR ---
PT RESTING, NO NEW COMPLAINTS, COMFORT MEASURES PROVIDED WILL CONTINUE TO MONITOR.
--- NOTE | 2020-01-21 14:45 | NUR ---
PT AWARE OF PLANNED ADMISSIONA ND AWAITING BED ASSIGNMENT, CALL COCHRAN ROSE MARYJOSIE REACH
[2020-01-21 15:19] LABS: URINE BILIRUBIN - DIPSTICK NEGATIVE (NEGATIVE); URINE BLOOD DIPSTICK NEGATIVE (NEGATIVE); URINE COLOR YELLOW; URINE GLUCOSE - DIPSTICK NEGATIVE (NEGATIVE); URINE KETONE NEGATIVE (NEGATIVE); URINE LEUK ESTERASE NEGATIVE (NEGATIVE); URINE NITRITE - DIPSTICK NEGATIVE (Negative); URINE PROTEIN - DIPSTICK NEGATIVE (NEG-TRACE); URINE SPECIFIC GRAVITY 1.025; URINE UROBILINOGEN - DIPSTICK 0.2 E.U./dL (0.2)
--- NOTE | 2020-01-21 15:19 | NUR ---
AT BEDSIDE AND NOTIFIED PT OF POSITIVE COVID IGG IGM
[2020-01-21 15:30] VITALS: BP 143/74
--- NOTE | 2020-01-21 16:11 | NUR ---
REPORT CALLED TO SENA ON MED SURG
--- NOTE | 2020-01-21 16:30 | NUR ---
PT ARRIVED TO UNIT AT 1622 VIA WHEELCHAIR WITH ER STAFF; ALERT AND OREINTED X 3; ABLE TO STATE HIS AGE, BUT NOT THE CURRENT MONTH. AMBULATED TO BED WITH STEADY GAIT; REPORTS THAT HE IS CURRENTLY USING A CANE AT HOME. POSITIONED INTO BED SEMI FOWLERS. DENIES PAIN CURRENTLY. RESPIRATIONS EVEN AND UNLABORED ON ROOM AIR. PLACED IN AIRBORNE/CONTACT ISOLATION ROOM PENDING COVID SWAB. TELE ON. EMS IV SITE TO LAC APPEARS HEALTHY WITH BLOODY DRAINGE ON DRESSING; FLUSHES WELL. ORIENTED TO ROOM AND CALL LIGHT SYSTEM. PLAN OF CARE DISCUSSED. PT ENCOURAGED TO VERBALIZE CONCERNS. STATES UNDERSTANDING. SAFETY MEASURES IN PLACE. CALL LIGHT WITHIN REACH.
--- NOTE | 2020-01-21 16:30 | NUR ---
PT TRANSPORTED TO MED SURG ON TELE VIA WHEELCHAIR. ALICE SENT WIHT PT, AWARE OF ROOM ASSIGNMENT.
[2020-01-21 19:00] VITALS: BP 126/62
--- NOTE | 2020-01-21 21:00 | NUR ---
PATIENT ALERT ORIENTED, ABLE TO MAKE NEEDS KNOWN, REMAINS ON TELE SR 64 WITH AVB, DENIES PAIN ON DISCOMFORTS, LBM 10/5, IV CANULA DISLODGE, IV REMOVED, CALL LIGHT AT REACH.
--- NOTE | 2020-01-21 22:30 | NUR ---
NEW IN SITE REINSERTED G 22 PATENT AND FLUSHES WELL CONNECTED TO NS @ 75CC/HR.
[2020-01-22] VITALS: BP 128/65
--- NOTE | 2020-01-22 | NUR ---
PATIENT APPEARS TO BE SLEEPING WITH EYES CLOSED, BREATHING EVEN UNLABORED, CALL LIGHT AT REACH.
[2020-01-22 04:00] VITALS: BP 115/59
[2020-01-22 05:05] LABS: HEMATOCRIT 27.9 % (39.0-50.0); HEMOGLOBIN 9.6 g/dl (14.0-18.0); MEAN CELL VOLUME 92.7 fL CALC (80.0-100.0); MEAN CORPUSCULAR HGB 31.9 pG CALC (26.0-32.0); MEAN CORPUSCULAR HGB CONC 34.4 g/dL CAL (32.0-36.0); NEUT# 2.02 thou/uL (1.82-7.42); RED BLOOD COUNT 3.01 mill/uL (4.70-6.10); RED CELL DISTRI WIDTH 15.6 % (11.5-15.5)
[2020-01-22 05:20] LABS: INTERNATIONAL NORMALIZED RATIO 1.4 RATIO (0.7-1.3)
[2020-01-22 05:23] LABS: ALBUMIN 2.9 g/dL (3.2-5.0); BILIRUBIN, TOTAL 1.3 mg/dL (0.0-1.4); CREATININE 1.8 mg/dL (0.7-1.3); POTASSIUM 4.7 mmol/l (3.5-5.1); TOTAL PROTEIN 6.1 g/dL (6.3-8.2)
--- NOTE | 2020-01-22 05:38 | NUR ---
PATIENT APPEARS TO BE SLEEPING WITH EYES CLOSED, BREATHING EVEN UNLABORED, NO DISCOMFORTS NOTED AT THIS TIME, CALL LIGHT AT REACH.
--- NOTE | 2020-01-22 07:30 | NUR ---
REPORT RECEIVED FROM PRIYANKA LAWSON. PT RESTING IN BED SEMI FOWLERS; ALERT AND ORIENTED X 3. DENIES PAIN. RESPIRATIONS EVEN AND UNLABORED ON ROOM AIR. TELE ON. IV FLUIDS INFUSING WITHOUT DIFFICUTLY; IV SITE APPEARS HEALTHY. PT SAT UP ON EDGE OF BED TO HAVE BREAKFAST. VSS. ACCU CHECK 95. PLAN OF CARE REVIEWED. PT ENCOURAGED TO VERBALIZE CONCERNS. STATES UNDERSTANDING. SAFETY MEASURES IN PLACE. CALL LIGHT WITHIN REACH.
[2020-01-22 07:52] VITALS: BP 127/66
[2020-01-22 07:55] VITALS: BP 127/66
--- NOTE | 2020-01-22 08:30 | NUR ---
DR. PETTIT AT BEDSIDE TO DISCUSS PLAN OF CARE AND DISCHARGE.
[2020-01-22] MEDS ORDERED: JANUVIA100 MG PO (09:29)
[2020-01-22] MEDS ORDERED: GENERLAC10 GM/15 M PO (09:33)
--- NOTE | 2020-01-22 10:00 | NUR ---
IV site discontinued, cath intact. No edema , no redness, voices no discomfort.
--- NOTE | 2020-01-22 10:09 | NUR ---
Discharge instructions given. Patient verbalizes understanding of same. Discharged in stable condition via Wheelchair to Home with spouse. All belongings sent with pt.
== END 2020-01-22 10:09 | disposition home or self-care (01) ==
LOC: ED 12:03 → ED-I 14:08 → ED 14:23 → MS2 14:24
PROVIDERS: Family Medicine; Nurse Practitioner; ADMIT Internal Medicine; ATTEND Internal Medicine
DX: K72.90 Hepatic failure, unspecified without coma (principal); I48.91 Unspecified atrial fibrillation; I12.9 Hypertensive chronic kidney disease with stage 1 through stage 4 chronic kidney disease, or unspecified chronic kidney disease; E11.22 Type 2 diabetes mellitus with diabetic chronic kidney disease; N18.30 Chronic kidney disease, stage 3 unspecified; I25.10 Atherosclerotic heart disease of native coronary artery without angina pectoris; E72.20 Disorder of urea cycle metabolism, unspecified; K74.60 Unspecified cirrhosis of liver; E78.5 Hyperlipidemia, unspecified; I48.0 Paroxysmal atrial fibrillation; K76.6 Portal hypertension; H54.8 Legal blindness, as defined in USA; R76.8 Other specified abnormal immunological findings in serum; Z95.5 Presence of coronary angioplasty implant and graft; Z79.84 Long term (current) use of oral hypoglycemic drugs; Z20.828 Contact with and (suspected) exposure to other viral communicable diseases
CPT/HCPCS: G0378

== ENCOUNTER 2020-02-18 12:10 | Observation (INO) | payer MEDICARE, OTHER ==
[~2020-02-18] VITALS: Ht 170.2 cm; Wt 86.3 kg
[2020-02-18 12:59] LABS: IMMATURE GRANULOCYTES 0.4 % (0.0-5.0); MEAN CELL VOLUME 97.8 fL CALC (80.0-100.0); MEAN CORPUSCULAR HGB CONC 32.7 g/dL CAL (32.0-36.0); NEUT# 3.7 thou/uL (1.82-7.42); RED BLOOD COUNT 3.66 mill/uL (4.70-6.10); RED CELL DISTRI WIDTH 15.4 % (11.5-15.5)
[2020-02-18 13:05] LABS: ALBUMIN 3.3 g/dL (3.2-5.0); BILIRUBIN, TOTAL 1.8 mg/dL (0.0-1.4); CREATININE 2.5 mg/dL (0.7-1.3); POTASSIUM 4.8 mmol/l (3.5-5.1)
[2020-02-18 13:07] LABS: HEMATOCRIT 35.8 % (39.0-50.0); HEMOGLOBIN 11.7 g/dl (14.0-18.0)
[2020-02-18 14:27] LABS: INTERNATIONAL NORMALIZED RATIO 1.4 RATIO (0.7-1.3); PROTHROMBIN TIME 13.9 SECONDS (9.0-12.5)
[2020-02-18 16:39] VITALS: BP 145/81
[2020-02-18 19:04] VITALS: BP 109/73
[2020-02-19 00:06] VITALS: BP 134/74
[2020-02-19 05:15] VITALS: BP 112/62
[2020-02-19 05:31] LABS: HEMATOCRIT 33.5 % (39.0-50.0); HEMOGLOBIN 11.3 g/dl (14.0-18.0); IMMATURE GRANULOCYTES 0.2 % (0.0-5.0); MEAN CELL VOLUME 96.5 fL CALC (80.0-100.0); MEAN CORPUSCULAR HGB 32.6 pG CALC (26.0-32.0); MEAN CORPUSCULAR HGB CONC 33.7 g/dL CAL (32.0-36.0); NEUT# 2.84 thou/uL (1.82-7.42); RED BLOOD COUNT 3.47 mill/uL (4.70-6.10); RED CELL DISTRI WIDTH 15.2 % (11.5-15.5)
[2020-02-19 06:04] LABS: ALBUMIN 2.8 g/dL (3.2-5.0); CREATININE 2.2 mg/dL (0.7-1.3); POTASSIUM 3.9 mmol/l (3.5-5.1); TOTAL PROTEIN 6.1 g/dL (6.3-8.2)
[2020-02-19 07:33] VITALS: BP 125/75
[2020-02-19 10:50] VITALS: BP 112/52
[2020-02-19 14:55] VITALS: BP 121/65
[2020-02-19 18:50] VITALS: BP 117/70
[2020-02-20] VITALS: BP 91/50
[2020-02-20 03:45] VITALS: BP 97/63
[2020-02-20 04:56] LABS: HEMATOCRIT 32.1 % (39.0-50.0); HEMOGLOBIN 10.7 g/dl (14.0-18.0); MEAN CELL VOLUME 96.4 fL CALC (80.0-100.0); MEAN CORPUSCULAR HGB 32.1 pG CALC (26.0-32.0); MEAN CORPUSCULAR HGB CONC 33.3 g/dL CAL (32.0-36.0); RED BLOOD COUNT 3.33 mill/uL (4.70-6.10)
[2020-02-20 05:41] LABS: ALBUMIN 2.7 g/dL (3.2-5.0); BILIRUBIN, TOTAL 1.3 mg/dL (0.0-1.4); CREATININE 2.1 mg/dL (0.7-1.3); POTASSIUM 3.9 mmol/l (3.5-5.1); TOTAL PROTEIN 5.9 g/dL (6.3-8.2)
[2020-02-20 08:55] VITALS: BP 105/65
[2020-02-20] MEDS ORDERED: SINGULAIR10 MG PO (10:25)
[2020-02-20] MEDS ORDERED: ATORVASTATIN CA20 MG PO (10:25)
[2020-02-20] MEDS ORDERED: JANUVIA100 MG PO (10:26)
[2020-02-20] MEDS ORDERED: SENNA-PLUS1 TAB PO (10:27)
[2020-02-20] MEDS ORDERED: GENERLAC10 GM/15 M PO (10:27)
[2020-02-20 11:06] VITALS: BP 112/68
== END 2020-02-20 11:37 | disposition home or self-care (01) ==
LOC: ED 12:10 → ED-I 13:19 → ED 13:48 → MS2 13:49
PROVIDERS: Nurse Practitioner; Nurse Practitioner Family; ADMIT Internal Medicine; ATTEND Internal Medicine
DX: K72.90 Hepatic failure, unspecified without coma (principal); K74.60 Unspecified cirrhosis of liver; N17.9 Acute kidney failure, unspecified; E72.20 Disorder of urea cycle metabolism, unspecified; E11.22 Type 2 diabetes mellitus with diabetic chronic kidney disease; I12.9 Hypertensive chronic kidney disease with stage 1 through stage 4 chronic kidney disease, or unspecified chronic kidney disease; N18.30 Chronic kidney disease, stage 3 unspecified; I25.10 Atherosclerotic heart disease of native coronary artery without angina pectoris; E78.5 Hyperlipidemia, unspecified; H54.8 Legal blindness, as defined in USA; I48.0 Paroxysmal atrial fibrillation; G47.30 Sleep apnea, unspecified; K76.6 Portal hypertension; E11.65 Type 2 diabetes mellitus with hyperglycemia; D69.59 Other secondary thrombocytopenia; Z79.84 Long term (current) use of oral hypoglycemic drugs; Z95.5 Presence of coronary angioplasty implant and graft; Z20.828 Contact with and (suspected) exposure to other viral communicable diseases
CPT/HCPCS: G0378

== ENCOUNTER 2020-05-17 16:49 | Inpatient (IN) | payer MEDICARE, OTHER ==
[~2020-05-17] VITALS: Ht 170.2 cm; Wt 79.4 kg
[~2020-05-17 16:49] MED LIST changes: +SENNA-PLUS1 TAB PO
--- NOTE | 2020-05-17 16:49 | NUR ---
PT TO ROOM # 10 VIA EMS STRETCHER
--- NOTE | 2020-05-17 17:02 | NUR ---
Reassessment of patient completed. No distress noted.
[2020-05-17 17:22] LABS: HEMATOCRIT 31.7 % (39.0-50.0); HEMOGLOBIN 10.6 g/dl (14.0-18.0); IMMATURE GRANULOCYTES 0.7 % (0.0-5.0); MEAN CELL VOLUME 95.2 fL CALC (80.0-100.0); MEAN CORPUSCULAR HGB 31.8 pG CALC (26.0-32.0); MEAN CORPUSCULAR HGB CONC 33.4 g/dL CAL (32.0-36.0); NEUT# 4.92 thou/uL (1.82-7.42); RED BLOOD COUNT 3.33 mill/uL (4.70-6.10); RED CELL DISTRI WIDTH 15.4 % (11.5-15.5)
[2020-05-17] MEDS ORDERED: INDERAL10 M1 PO (17:26)
[2020-05-17 17:35] LABS: ALBUMIN 2.6 g/dL (3.2-5.0); CREATININE 2.7 mg/dL (0.7-1.3); MAGNESIUM 2.2 mg/dL (1.6-2.3); POTASSIUM 4.3 mmol/l (3.5-5.1); TOTAL PROTEIN 6.3 g/dL (6.3-8.2)
[2020-05-17 17:36] LABS: ACT PARTIAL THROMBO TIME 35.2 SECONDS (20.0-32.5); BILIRUBIN, TOTAL 1.7 mg/dL (0.0-1.4); INTERNATIONAL NORMALIZED RATIO 1.2 RATIO (0.7-1.3); PROTHROMBIN TIME 12.1 SECONDS (9.0-12.5)
--- NOTE | 2020-05-17 18:05 | NUR ---
Reassessment of patient completed. No distress noted.
[2020-05-17 18:32] LABS: URINE BILIRUBIN - DIPSTICK NEGATIVE (NEGATIVE); URINE BLOOD DIPSTICK NEGATIVE (NEGATIVE); URINE COLOR YELLOW; URINE GLUCOSE - DIPSTICK NEGATIVE (NEGATIVE); URINE KETONE NEGATIVE (NEGATIVE); URINE LEUK ESTERASE NEGATIVE (NEGATIVE); URINE NITRITE - DIPSTICK NEGATIVE (Negative); URINE PH 5.5 (4.5-8.0); URINE PROTEIN - DIPSTICK NEGATIVE (NEG-TRACE); URINE UROBILINOGEN - DIPSTICK 0.2 E.U./dL (0.2)
--- NOTE | 2020-05-17 19:18 | NUR ---
Reassessment of patient completed. No distress noted.
--- NOTE | 2020-05-17 20:08 | NUR ---
Reassessment of patient completed. No distress noted.
--- NOTE | 2020-05-17 20:09 | NUR ---
REPORT CALLED TO MED-SURGE
--- NOTE | 2020-05-17 21:42 | NUR ---
PT TO MS VIA STRETCHER
[2020-05-17 21:45] VITALS: BP 128/70
--- NOTE | 2020-05-17 22:00 | NUR ---
PT ARRIVED TO THE UNIT VIA STRETCHER TO ROOM 281. PT IS ALERT WITH CONFUSION NOTED. ON CONTACT/DROPLET PRECAUTION. PT HAS POOR SAFETY AWARENESS AND CALL LIGHT IS WITHIN REACH AND BED IN LOW POSITION WITH BED ALARM ON. DENIES PAIN OR DISCOMFORT. PT IS A DIABETIC AND HAS NO S/S OF HYPO/HYPERGLYCEMIA. SKIN ASSESSED AND BRUISING NOTED ON BILAT UPPER EXTREMITY. PT [facility] EMS SITE TO [facility] WITH NO COMPLICATIONS NOTED. CONTINENT OF B/B AND USES THE BSC WITH 1 PERSON ASSIST. aBDOMEN IS DISTENDED BUT SOFT AND BOWEL SOUNDS ACTIVE IN ALL QUADRANTS. STATES PT HAD 3 LOOSE BOWEL MOVEMENTS ON 05/17/20. O2 SAT WAS 88% UPON ARRIVING TO UNIT AND PLACED ON 2LNC AND O2 LEVEL UP TO 94%. ON TELEMETRY AND RUNNING SR 73 WITH PAC'S. DENIES ANY DISTRESS. HOB ELEVATED AND FLUIDS GIVEN AND TOLERATED WELL. CALL LIGHT WITHIN REACH. WILL CONTINUE TO OBSERVE
[2020-05-18 01:00] VITALS: BP 118/57
--- NOTE | 2020-05-18 03:00 | NUR ---
PT IN BED WITH EYES CLOSED. NO S/S OF DISTRESS OR DISCOMFORT. BED IN LOW POSITION AND CALL LIGHT WITHIN REACH. WILL COTNINUE TO OBSERVE.
[2020-05-18 05:00] VITALS: BP 113/59
--- NOTE | 2020-05-18 07:01 | NUR ---
PT IN BED WITH EYES OPEN AND ABLE TO MAKE NEEDS KNPOEN. MILD CONFUSION NOTED. CONTINENT OF BLADDER AND USED URINAL WITH 1 STAFF ASSIST. BLOOD SUGAR 68 AND GLASS OF ORANGE GIVEN AND TOLERATED WELL. NO SWALLOWING DIFFICULTIES NOTED. HOB ELEVATED AND CALL LIGHT WITHIN REACH. WILL CONTINUE TO OBSERVE
[2020-05-18 07:35] VITALS: BP 94/50
--- NOTE | 2020-05-18 07:40 | NUR ---
PATIENT RESTING IN BED AT THIS TIME. RN ASSESMENT DONE SEE INTERVETIONS. PATIENT ON O2 AT 2 LITERS. PATEINT ALERT X 2 CALL LIGHT WITHIN REACH SIDERAILS UP X 2. PATIENT DENIES PAIN AT THIS TIME. PATIENT DOES NOT EXHIBIT COUGH OR SHORTNESS OF BREATH. ABDOMEN DISTENTED BUT SOFT. [facility]
[2020-05-18 10:30] VITALS: BP 93/53
--- NOTE | 2020-05-18 12:05 | NUR ---
PATEINT IN BED AT THIS TIME EATING LUNCH. DENIES ANY PAIN CURRENTLY. O2 ON 2 LITERS SIDERAILS ARE UP CALL LIGHT WITHIN REACH.
[2020-05-18 14:50] VITALS: BP 97/51
--- NOTE | 2020-05-18 16:10 | NUR ---
PATIENT RESTING IN BED AT THIS TIME CALL LIGHT WITHIN REACH SIDERAILS UP X 2 PATIENT DENIES ANY PAIN AT THIS TIME. PATIENT HAS O2 ON AT 2L AT THIS TIME AND SHOWS NO SIGNS OF SHORTNESS OF BREATH. ABDOMINAL REMAINS DISTENTED BUT SOFT.
--- NOTE | 2020-05-18 17:16 | NUR ---
CALLED DR. CRENSHAW [phone] SPOKE TO HIM PERSONALLY AND TOLD HIM ABOUT THE CONSULTATION OF THIS PT FOR CHRONIC RENAL FAILURE.
[2020-05-18 19:00] VITALS: BP 96/52
--- NOTE | 2020-05-18 20:22 | NUR ---
Pt resting comfortably with eyes closed, no complaints voiced. EMS IV remains in place in the RAC. Attempted to place a new IV site without success x 2. Will refer to a different nurse to attempt IV placement. will monitor.
[2020-05-19] VITALS (7 sets, daily range): BP systolic 84–115; BP diastolic 54–69
--- NOTE | 2020-05-19 00:17 | NUR ---
Nurse was advised by assigned BOATWRIGHT that patients b/p was 84/62 with a pulse of 92. Physician advised, new orders received. Per phbabakciloida if HR is greater than 100 BPM start NS @ 50ml/hr via IV. If patient remains asymptomtic for hypotension just monitor. Will monitor.
--- NOTE | 2020-05-19 05:17 | NUR ---
Pt resting comfortably in bed with eyes closed. No complaints voiced. Denies pain. Previous IV site placed by EMS removed. New site started to R hand # 22, saline locked. Flushes easily. No complaints voiced. Breathing even and unlabored. This nurse spoke with physcian earlier who gived orders to start IV fluids at 50ml/hr if heart rate is greater than 100bmp. At time of this note pt is SR artifact with CPAC. Heart rate at 96BPM. Will continue to monitor.
[2020-05-19 06:06] LABS: HEMATOCRIT 30.2 % (39.0-50.0); MEAN CELL VOLUME 95.3 fL CALC (80.0-100.0); MEAN CORPUSCULAR HGB 31.5 pG CALC (26.0-32.0); MEAN CORPUSCULAR HGB CONC 33.1 g/dL CAL (32.0-36.0); NEUT# 7.15 thou/uL (1.82-7.42); RED BLOOD COUNT 3.17 mill/uL (4.70-6.10); RED CELL DISTRI WIDTH 15.6 % (11.5-15.5)
[2020-05-19 06:25] LABS: ALBUMIN 2.1 g/dL (3.2-5.0); CREATININE 2.5 mg/dL (0.7-1.3); POTASSIUM 4.1 mmol/l (3.5-5.1); TOTAL PROTEIN 5.4 g/dL (6.3-8.2)
[2020-05-19 06:34] LABS: C-REACTIVE PROTEIN 7.1 mg/dL (0-0.9)
[2020-05-19 06:36] LABS: BILIRUBIN, TOTAL 2.4 mg/dL (0.0-1.4)
--- NOTE | 2020-05-19 07:46 | NUR ---
PRELIM BLOOD CX SHOWS GRAM POSITIVE COCCI IN 1 SET, BOTH BOTTLES, LIKELY A CONTAMINANT. RESULTS REPORTED TO GEOVANNA, WILL F/U WITH FINAL
--- NOTE | 2020-05-19 08:39 | NUR ---
PT RESTING IN SEMI FOWLERS POSITION.PT IS A/O X3 WITH SOME CONFUSING.ASSESSMENT AND VITALS OBTAINED. BP 87/54, HR 89,O2 94% ON 2L NC.RESPIRATIONS ARE EVEN AND UNLABORED WITH NO DISTRESS NOTED. HEART RHYTHM IS NORMAL WITH TELE IN PLACE, SR WITH PVC PER ER MONITORING.BOWEL SOUNDS ARE ACTIVE. RADIAL PULSES STRONG. PEDAL PULSES WEAK. #22G IN RIGHT HAND FLUSHED, SITE APPEARS HEALTHY AND PATENT.SKIN IS WARM AND INTACT. PT DENIES OF ANY PAINS OR DISCOMFORTS.ALL SAFETY PRECAUTIONS ARE IN PLACE WITH CALL LIGHT IN REACH AND BED ALARM ACTIVATED. AIR/CONTACT PRECAUTIONS IN PLACE.WILL CONTINUE TO MONITOR.
--- NOTE | 2020-05-19 10:53 | NUR ---
Patient is screened for PT intervention and no needs are identified at this time
--- NOTE | 2020-05-19 11:58 | NUR ---
PT RESTING IN SEMI FOWLERS POSITION.REPSIRATIONS ARE EVEN AND UNLABORED ON 2L NC. OXYEGN REMOVED TO MONITOR O2 SAT ON ROOM AIR, DESAT TO 88% O2 REAPPLIED. IVF INFUSING WITH EASE, SITE APPEARS HEALTHY AND PATENT. ACCUCHECK RESUTLING IN 211,COVERAGE ADMINISTERED.PT DENEIS OF ANY PAINS OR DISCOMFORTS.ALL SAFETY PRECAUTIONS ARE IN PLACE WITH CALL LIGHT IN REACH. WILL CONTINUE TO MONITOR
--- NOTE | 2020-05-19 12:06 | NUR ---
UPDATE ON PT STATUS.PASSCODE PROVIDED.
--- NOTE | 2020-05-19 17:07 | NUR ---
PT SLEEPING IN SEMI FOLWERS POSITION. RESPIRATIONS ARE EVEN AND UNLABORED ON 2L NC . IVF INFUSING WITH EASE, SITE APPEARS HEALTHY AND PATENT. TELE MONITORING IN PLACE. NO SIGNS OF ANY PAINS OR DISCOMFORTS. ALL SAFETY PERCAUTIONS ARE IN PLACE WIHT CALL LIGHT IN REACH AND BED ALARM ACTIVATED. WILL CONTINUE TO MONITOR
--- NOTE | 2020-05-19 20:02 | NUR ---
PHYSICAL ASSESMENT COMPLETE. PT CURRENTLY DENIES PAIN OR DISCOMFORT. SCHEDULED MEDICATIONS AND PRN MEDICATION ADMINISTERED, SEE E-MAR. PT DENIES ANY NEEDS AT THIS TIME. PLAN OF CARE REVIEWED, PT DENIES QUESTIONS, VERBALIZES UNDERSTANDING. ITEMS WITHIN REACH, BED LOCKED IN LOW POSITION W/ BEDRAILS UP X2. CALL COCHRAN WITHIN REACH, AGREES TO CALL PRN.
[2020-05-20] VITALS (7 sets, daily range): BP systolic 91–120; BP diastolic 51–71
--- NOTE | 2020-05-20 00:02 | NUR ---
PT LAYING IN BED WITH EYES CLOSED, APPEARS TO BE SLEEPING, APPEARS COMFORTABLE AND IN NO DISTRESS. RESPIRATIONS REGULAR AND UNLABORED. ITEMS REMAIN WITHIN REACH, CALL COCHRAN REMAINS WITHIN REACH. BED REMAINS LOCKED AND IN LOW POSITION WITH BEDRAILS UP X2. WILL CONTINUE TO MONITOR.
--- NOTE | 2020-05-20 04:00 | NUR ---
PT RESTING IN BED, NO SIGNS OF DISTRESS NOTED, RESP EVEN AND UNLABORED. PT VOICES NO NEEDS OR COMPLAINTS AT THIS TIME. CALL LIGHT IN REACH, CONTINUE TO MONITOR.
--- NOTE | 2020-05-20 07:30 | NUR ---
RECIEVED REPORT FROM PRIYANKA MCNALLY
--- NOTE | 2020-05-20 07:40 | NUR ---
PT RESTING IN SEMI FOWLERS POSITION. PT IS A/O X2 WITH SOME CONFUSION. ASSESSMENT AND VITALS COMPLETED. BP 98/71, HR 93, O2 95 % ON ROOM AIR 2L NC PRN AT BEDSIDE. RESPIRATIONS ARE EVEN AND UNLABORED WITH NO DISTRESS NOTED. HEART RHYTHM IRREGULAR WITH TELE MONITORING IN PLACE, AFIB PER ER MONITORING. RADIAL PULSES STRONG. PEDAL PULSES WEAK. #22G IN LEFT HAND INFUSING WITH IVF PER ORDE, SITE APPEARS HEALTHY AND PATENT. SKIN IS WARM AND INTACT. ACCUCHECK RESULTING IN 101, NO COVERAGED NEEDED. PT DENIES OF ANY PAINS OR DISCOMFORTS. ALL SAFETY PRECAUTIONS ARE IN PLACE WITH CALL LIGHT IN REACH AND BED ALARM ACTIVATED. WILL CONTINUE TO MONITOR
--- NOTE | 2020-05-20 08:56 | NUR ---
PT O2 SAT 85% ON ROOM AIR. 2L NC REAPPLIED. O2 SAT 94% . RESPIRATIONS REMAINS EVEN AND UNLABORED WITH NO DISTRESS NOTED. PT DENIES OF ANY DISCOMFORTS.
--- NOTE | 2020-05-20 10:46 | NUR ---
Final blood culture results show staph epidermidis in 1/4 vials, R[facility] considers contaminant.
--- NOTE | 2020-05-20 10:52 | NUR ---
DR BRASHER AT BEDSIDE
--- NOTE | 2020-05-20 11:48 | NUR ---
PT RESTING IN SEMI FOWLERS POSITION. RESPIRATIONS ARE EVEN AND UNLABORED ON 2L NC. IVF INFUSING PER ORDER, SITE APPEARS HEALTHY AND PATENT. PT DENIES OF ANY PAINS OR DISCOMFORTS AT THIS TIME. ACCUCHECK RESULTING IN 154, COVERAGE ADMINISTERED. ALL SAFETY PRECAUTIONS ARE IN PLACE WITH CALL LIGTH IN REACH AND BED ALARM ACTIVATED. WILL CONTINUE TO MONITOR
--- NOTE | 2020-05-20 12:08 | NUR ---
DR ALMONTE CONSULT COMPLETED
--- NOTE | 2020-05-20 12:51 | NUR ---
NPO STATUS FOR ABD US IN PLACE
--- NOTE | 2020-05-20 16:30 | NUR ---
PT RESTING IN SEMI FOWLERS POSITION. RESPIRATIONS ARE EVEN AND UNLABRED 2L NC. NO DISTRESS NOTED. IVF INFUSING PER ORDER, SITE APPEARS HEALTHY AND PATENT. PT DENIES OF ANY PAINS OR DISCOMFORTS. ALL SAFETY PRECAUTIONS ARE IN PLACE WITH CALL LIGHT IN REACH. WILL CONTINUE TO MONITOR
--- NOTE | 2020-05-20 16:47 | NUR ---
UPDATED OF PT STATUS. PASSCODE PROVIDED.
[2020-05-21 03:30] VITALS: BP 109/62
[2020-05-21 06:03] LABS: HEMATOCRIT 33.3 % (39.0-50.0); HEMOGLOBIN 10.9 g/dl (14.0-18.0); MEAN CORPUSCULAR HGB 31.4 pG CALC (26.0-32.0); MEAN CORPUSCULAR HGB CONC 32.7 g/dL CAL (32.0-36.0); NEUT# 2.58 thou/uL (1.82-7.42); RED BLOOD COUNT 3.47 mill/uL (4.70-6.10); RED CELL DISTRI WIDTH 15.9 % (11.5-15.5)
[2020-05-21 07:19] LABS: ALBUMIN 2.1 g/dL (3.2-5.0); BILIRUBIN, TOTAL 2.5 mg/dL (0.0-1.4); CREATININE 3.3 mg/dL (0.7-1.3); TOTAL PROTEIN 5.4 g/dL (6.3-8.2)
--- NOTE | 2020-05-21 07:43 | NUR ---
RECEIVED A CALL FROM LAB RE: CO2 AND BUN REPORTED TO DR TROTTER ON THE UNIT.
[2020-05-21 08:15] VITALS: BP 117/82
--- NOTE | 2020-05-21 08:15 | NUR ---
ASSESSMENT IS COMPLETED: IV SITE IS FREE FROM REDNESS OR EDEMA.HR IS REG,PULSES ARE STRONG X4, ABD IS SOFT WITH ACTIVE BS. BREATH SOUNDS ARE CLEAR, AND DIMINISHED. TELE MONITOR IN [place].
[2020-05-21 11:00] VITALS: BP 128/72
--- NOTE | 2020-05-21 12:28 | NUR ---
PT WENT FOR A CT SCAN IS COMPLETED: VIA WC WITH STAFF. IV SITE IS FREE FROM REDNESS OR EDEMA.
--- NOTE | 2020-05-21 12:30 | NUR ---
PT IS RELAXING IN THE CHAIR AFTER RETURNING FROM CT SCAN. IV SITE IS FREE FROM REDNESS OR EDEMA
--- NOTE | 2020-05-21 13:22 | NUR ---
PT HAD A LARGE LOOSE STOOL PRIOR TO GOING TO CT SCAN.
--- NOTE | 2020-05-21 13:58 | NUR ---
SPOKE WITH SPOUSE. INQUIRED ABOUT VIDEO CHATTING. IV SITE IS FREE FROM REDNESS OR EDEMA. SHE HAS A CPAP AND QUALITY ASSURANCE DIRECTOR . WILL BRING.
--- NOTE | 2020-05-21 15:45 | NUR ---
PHYSICAL THERAPY IN WORKING WITH PT.
[2020-05-21 16:00] VITALS: BP 115/58
--- NOTE | 2020-05-21 16:05 | NUR ---
PT IS SITTING UP IN THE CHAIR, HAS BEEN WORKING WITH PT. IV SITE IS FREE FROM REDNESS OR EDEMA.
--- NOTE | 2020-05-21 18:06 | NUR ---
ENCOURAGED PT TO EAT IF NOT WANT TO EAT THEN TO DRINK FLUIDS.
[2020-05-21 18:30] VITALS: BP 119/75
[2020-05-21 23:57] VITALS: BP 97/76
[2020-05-22] VITALS (12 sets, daily range): BP systolic 95–133; BP diastolic 52–77
[2020-05-22 06:17] LABS: HEMATOCRIT 27.5 % (39.0-50.0); HEMOGLOBIN 9.5 g/dl (14.0-18.0); IMMATURE GRANULOCYTES 1.5 % (0.0-5.0); MEAN CORPUSCULAR HGB 31.8 pG CALC (26.0-32.0); MEAN CORPUSCULAR HGB CONC 34.5 g/dL CAL (32.0-36.0); NEUT# 3.37 thou/uL (1.82-7.42); RED BLOOD COUNT 2.99 mill/uL (4.70-6.10); RED CELL DISTRI WIDTH 15.9 % (11.5-15.5)
[2020-05-22 06:32] LABS: BILIRUBIN, TOTAL 3.3 mg/dL (0.0-1.4); C-REACTIVE PROTEIN 4.4 mg/dL (0-0.9); POTASSIUM 3.8 mmol/l (3.5-5.1); TOTAL PROTEIN 5.2 g/dL (6.3-8.2)
[2020-05-22 06:39] LABS: CREATININE 4.4 mg/dL (0.7-1.3)
--- NOTE | 2020-05-22 08:30 | NUR ---
ASSESSMENT IS COMPLETED: PT UNABLE TO KEEP EYES OPEN, WHEN ASKED IF HE COULD SQUEEZE THE FINGERS UNABLE TO FOLLOW COMMANDS.USED THE BLADDER SCANNER TO CHECK FOR RESIDUAL. NO UA PER MACHINE. IV SITE IS FREE FROM REDNESS OR EDEMA. HR IS REG,PULSES ARE STRONG ON RADIAL WEAK ON PEDAL. HAS +2 EDEMA NOTED ON R LEG. PT WAS UNDER THE BEAR HUGGAR DUE TO BEING VERY COLD IN THE ROOM.
--- NOTE | 2020-05-22 09:00 | NUR ---
CALLED A RAPID RESPONSE TO THE PT'S ROOM. DUE TO LEFT PUPIL LOOKED BIGGER THAN THEN THE RIGHT AND NOT ABLE TO FOLLOW COMMANDS. PT ACTED DIFFERENT FROM YESTERDAYS ASSESSMENT. YESTERDAY PT WAS ABLE TO TALK AND GET OUT OF BED AND TAKE MEDICATIONS. TODAY UNABLE TO STAY AWAKE ENOUGH TO DO ANY MEDICATIONS. PT HAS NOT HAD AN APPETITE. DR TROTTER AND GEOVANNA PARRISH ARPN ON THE UNIT AND CAME TO THE ROOM.
--- NOTE | 2020-05-22 09:18 | NUR ---
SPOKE WITH SENA MATHEW AND GAVE REPORT
--- NOTE | 2020-05-22 09:24 | NUR ---
SPOKE WITH SENA RN IN ICU AND RECIEVED BED 3 AND PT WAS THEN TRANSFERED WITH ALL BELONGINGS AND BED TO ROOM 3. CONTINUE TO OBSERVE AND MONITOR.
--- NOTE | 2020-05-22 09:25 | NUR ---
DR. TROTTER ON PHONE WITH ; UPDATED ON TRANSFER TO ICU AND PT DECLINE IN CONDITION. TELEPHONE REPORT RECEIVED FROM JOEL MAYEN.
--- NOTE | 2020-05-22 09:30 | NUR ---
ARRIVED TO ICU ROOM 1 VIA BED WITH [facility] STAFF; LETHARGIC WITH GARBLED SPEECH. STATED NAME AND ; DOES NOT REPLY TO ANY FURTHER QUESTIONS; DOES NOT FOLLOW COMMANDS TO KEEP EYES OPEN, OPEN MOUTH, ETC; ALL EXTREMITIES FALL TO BED. DOES NOT APPEAR IN ANY PAIN OR DISTRESS. RESPIRATIONS EVEN AND UNLABORED ON OXYGEN 2L VIA NC; SPO2 98%. PUPILS ARE SLUGGLISH TO LIGHT 6MM; SKIN JAUNDICE AND PALE. ABDOMEN DISTENDED, SOFT, FLUID FILLED; BOWEL SOUNDS HYPOACTIVE. 1+ PITTING EDEMA TO RIGHT ANKLE. BLANCHABLE REDNESS TO BILATERAL HEELS; BLANCHABLE REDNESS TO COCCYX WITH SMALL CIRCULAR OPEN AREA. ON PROPERTY MAN PT IS CURRENTLY SINUS RHYTHM WITH PVS'S AND FIRST DEGREE AVB. SODIUM BICARB INFUSING AT 75 ML/HR INTO #20G IV TO LEFT WRIST; SITE APPEARS HEALTHY; NO SIGNS OF INFILTRATION OR PHLEBITIS. REMAINS ON [place]/CONTACT PRECAUTIONS FOR COVID 19. SAFETY MEASURES IN PLACE. NEEDS ARE ANTICIPATED BY STAFF.
--- NOTE | 2020-05-22 10:47 | NUR ---
SODIUM BICARB STOPPED PER ORDER. 16F BONNER CATHETER PLACED WITH IMMEDIATE RETURN OF CLEAR [place] URINE. HYPOTENSIVE, BUT STABLE WITH SBP IN THE 80S-90S. PT SHAKES HEAD "NO" WHEN ASKED IF HE IS HAVING PAIN. SHAKES HEAD "YES" WHEN ASKED IF HE IS BREATHING WELL. LEFT SIDE OF FACE HAS INCREASED DROOP; PT ASKED TO SMILE AND HE REPLYS "I AM SMILING" IN LOW GARBLED VOICE, HOWEVER, HE DOES NOT MOVE HIS FACE. SHAKES HEAD "YES" WHEN ASKED IF HE FEELS WEAKER ON ONE SIDE AND INDICATES THAT HIS LEFT SIDE IS WEAKER. UNABLE TO FOLLOW ANY COMMANDS OR PARTICIPATE IN [facility] ASSESSMENT.
--- NOTE | 2020-05-22 11:10 | NUR ---
STOKE ALERT CALLED AT 1102 FOR NEW SYMPTOMS. PT OFF UNIT VIA BED WITH ICU STAFF FOR BRAIN CT. AWARE.
--- NOTE | 2020-05-22 11:15 | NUR ---
PT RETURNED TO UNIT AND RECONNECTED TO ALL ATTACHMENTS.
--- NOTE | 2020-05-22 12:08 | NUR ---
DR. TROTTER AT BEDSIDE FOR EVAL.
--- NOTE | 2020-05-22 12:48 | NUR ---
PT IS IN STABLE CONDITION; FOUND WITH OXYGEN REMOVED FROM NARES; SPO2 97-98%; WILL CONTINUE TO MONITOR ON ROOM AIR.
--- NOTE | 2020-05-22 13:24 | NUR ---
patient was to be seen for P.T. however due to a possible stroke occuring today his physical condition was not appropriate for P.T to be performed on this date
--- NOTE | 2020-05-22 13:30 | NUR ---
CALLED [facility]POKE TO [place] AND WAS GIVEN CONFIRMATION NUMBER [phone]
--- NOTE | 2020-05-22 14:15 | NUR ---
, WILEY, CALLED FOR UPDATE. QUESTIONS ANSWERED TO SATISFACTION.
--- NOTE | 2020-05-22 15:25 | NUR ---
SPEECH THERPAY AT BEDSIDE FOR EVAL.
--- NOTE | 2020-05-22 15:44 | NUR ---
PT ABLE TO DRINK LACTULOSE IN SMALL SIPS AND SODIUM BICARB CRUSHED IN APPLESAUCE.
--- NOTE | 2020-05-22 18:00 | NUR ---
INCONTINENT OF SMALL LOOSE BOWEL MOVEMENT; BONNER DRAINING MINIMAL AMOUNTS OF URINE. PARTIAL BATH PROVIDED INCLUDING BONNER CARE. DUODERM APPLIED TO SKIN BREAKDOWN ON COCCYX AND BARRIER CREAM AROUND DRESSING; SKIN PREP APPLIED TO BILATERAL HEELS. PT TRASNFERRED ONTO AIRMATRESS AND POSITIONED WITH PILLOWS. PT IS MORE ALERT AND MORE VERBAL; DOES LOOK WHEN YOU SAY HIS NAME, BUT DOES NOT MAKE EYE CONTACT. PT TOOK MEDS CRUSHED IN APPLE SAUCE; DELAYED SWALLOWING, BUT NO CHOKING OR SIGNS OF ASPIRATION.
--- NOTE | 2020-05-22 18:32 | NUR ---
SAT UP IN HIGH FOWLERS FOR DINNER; TOTAL FEED WITH ASPIRATIONS PRECAUTIONS AT THIS TIME; ATE MINIMAL ABOUT 6-7 BITES. ONLY 55ML URINE OUTPUT SINCE INSERTION.
--- NOTE | 2020-05-22 19:23 | NUR ---
Pt rsting comfortably in bed with eyes closed. Slow to respond when questions asked. Very lethargic at this time. Pt remains a full code at this time. will monitor
[2020-05-22 19:38] LABS: URINE BILIRUBIN - DIPSTICK NEGATIVE (NEGATIVE); URINE BLOOD DIPSTICK NEGATIVE (NEGATIVE); URINE GLUCOSE - DIPSTICK NEGATIVE (NEGATIVE); URINE KETONE NEGATIVE (NEGATIVE); URINE LEUK ESTERASE NEGATIVE (NEGATIVE); URINE PROTEIN - DIPSTICK TRACE mg/dL (NEG-TRACE); URINE SPECIFIC GRAVITY >=1.030; URINE UROBILINOGEN - DIPSTICK 0.2 E.U./dL (0.2)
[2020-05-22 20:00] LABS: URINE COLOR AMBER; URINE NITRITE - DIPSTICK POSITIVE (Negative)
[2020-05-22 20:02] LABS: URINE AMORPH SEDIMENT MANY hpf (NONE-FER); URINE BACTERIA RARE hpf; URINE RBC 0-2 RBC/hpf (0-5); URINE WBC 0-2 WBC/hpf (0-5)
--- NOTE | 2020-05-22 20:38 | NUR ---
Pt resting with eyes closed. Currently reciving NS Bolus @ 500ml/hr. Will montior.
--- NOTE | 2020-05-22 22:19 | NUR ---
Pt resting comfortably in bed with eyes closed. ABT continues via IV. No s/s of complications noted. No complaints voiced.
--- NOTE | 2020-05-22 23:38 | NUR ---
Pt continues to rest comfortably. No complaints voiced. No changes in codition at this time.
[2020-05-23] VITALS (9 sets, daily range): BP systolic 95–134; BP diastolic 46–78
--- NOTE | 2020-05-23 02:43 | NUR ---
When completing rounds of patient noted pt with large loose BM. Cleansed pt with soap and water, pat dry with a towel, and changed all sheets. Pt denies any further needs at this time. Will monitor.
--- NOTE | 2020-05-23 03:57 | NUR ---
Pt esting in bed with eyes closed, denies pain, breathing even and unlabored. Poor urinary output at this time. Urine dark ashtyn in color and clear. Bilateral fett elevated and use of air matress in place. Bed in the lowest position, call light within reach, and pt educated on the importance of asking for assistance. Will monitor
--- NOTE | 2020-05-23 05:00 | NUR ---
Resting quietly in bed, no complaints voiced, breathing even and unlabored. Bed in lowest position, call light within reach.
[2020-05-23 05:08] LABS: HEMATOCRIT 25.5 % (39.0-50.0); HEMOGLOBIN 8.7 g/dl (14.0-18.0); MEAN CELL VOLUME 93.1 fL CALC (80.0-100.0); MEAN CORPUSCULAR HGB 31.8 pG CALC (26.0-32.0); MEAN CORPUSCULAR HGB CONC 34.1 g/dL CAL (32.0-36.0); RED BLOOD COUNT 2.74 mill/uL (4.70-6.10); RED CELL DISTRI WIDTH 16.4 % (11.5-15.5)
[2020-05-23 05:33] LABS: ALBUMIN 1.9 g/dL (3.2-5.0); CREATININE 4.6 mg/dL (0.7-1.3); POTASSIUM 3.5 mmol/l (3.5-5.1); TOTAL PROTEIN 4.7 g/dL (6.3-8.2)
[2020-05-23 05:42] LABS: BILIRUBIN, TOTAL 4.8 mg/dL (0.0-1.4)
--- NOTE | 2020-05-23 06:20 | NUR ---
Pt resting in bed, critical lab values reported, Glucose 762 and BUN 114. Nurse requested lab to redraw CMP to verify results. Pending new results at this time.
--- NOTE | 2020-05-23 06:25 | NUR ---
Lab was unable to obtain a sample for a repeat CMP, accu check completed to verify blood glucose, 379. Will pass on in report
--- NOTE | 2020-05-23 07:15 | NUR ---
pt resting in bed with eyes closed; no apparent distress noted; easily aroused to verbal stimuli; assessment completed at this time; pt alert to person; pt very lethargic and slow to respond; pt denies pain; no n/v noted; resp even and unlabored; lungs coarse anterior/ clear posterior; skin color jaundiced; ra; no cough noted; hr reg; strong pulses; edema noted to ble; sr/ pvc on monitor; abd soft/ distended with bs present; lg loose yellow stool noted; pericare per staff; bolivar to gravity draining scant urine; cath strap intact; #20 patent to rw with ivf infusing without complication; no redness or edema noted at site; duoderm intact to sacrum area; unable to assess wound; repositioned to left side; plan of care/ meds explained; air mattress intact; call light within reach; will continue to monitor
--- NOTE | 2020-05-23 08:10 | NUR ---
awake in bed; mailing machine assistant present at bedside to feed pt; pt in high fowlers position; tolerating meal well; will continue to monitor
--- NOTE | 2020-05-23 08:19 | NUR ---
Dr Bowden called this securities underwriter; update provided; orders received to hold colace, lasix, aldactone; will continue to monitor
--- NOTE | 2020-05-23 09:58 | NUR ---
ORDER FOR OT RE-EVAL, RECOMMENDATION, AND TREAT FOR ADL RE-TRAINING AND STRENGTHENING OF BUE
--- NOTE | 2020-05-23 10:00 | NUR ---
PT/OT present at bedside; call received from spouse Vero; passcode verified; update provided
--- NOTE | 2020-05-23 10:31 | NUR ---
Patient received semi-upright in bed. Patient repositioned in bed by PLATER HELPER and nursing staff. Patient opens eyes to name. He is oriented to self only. Does not follow commands and continues to be lethargic. Vocal quality remains weak, hoarse, and breathy with periods of aphonia. RN reports patient ate 50% of breakfast meal this morning and had no coughing with PO intake. Patient given therapeutic PO trials of ice-chips, thin liquids via open cup, nectar thick liquids via straw, and pureed solids. Patient presented with oral holding, prolonged oral transit time, suspected delayed pharyngeal swallow, and decreased hyolaryngeal excursion with thin liquids. Gentle throat clearing appreciated 1x with thin liquids. Given s/s of penetration/aspiration with thin liquids, patient's cognitive status, and lethargy he is not appropriate for a diet advancement. Patient tolerated PO trials of nectar thick liquids and pureed solids free from s/s of penetration/aspiration. He continues to present with oral holding and increased oral transit time with pureed solids, making him inappropriate for a diet advancement to soft solids at this time. Recommend continue current diet of pureed solids and nectar thick liquids. Aspiration precautions to include: HOB upright for PO intake, feed slowly, assistance at meals, and remain upright for >30 minutes after PO intake.
--- NOTE | 2020-05-23 11:00 | NUR ---
Dr Bowden present at bedside to assess pt and discuss plan of care
--- NOTE | 2020-05-23 11:10 | NUR ---
call placed to spouse Vero; phone passed to Dr Bowden
--- NOTE | 2020-05-23 11:30 | NUR ---
call received from spouse Vero in regards to home medication Xifaxan; orders received per Dr Bowden to start; also informed of elevated glucose; orders received and on chart
--- NOTE | 2020-05-23 11:40 | NUR ---
call received from [facility]; facesheet faxed as per request
--- NOTE | 2020-05-23 12:07 | NUR ---
resting in bed with eyes closed; easy to arouse; lethargic; offers no complaints; iv intact and patent; bolivar to gravity; sr on monitor; declined lunch; repositioned; call light within reach; will continue to monitor
--- NOTE | 2020-05-23 12:41 | NUR ---
call received from [facility] Grossman inquiring if pt would be suitable for tele bed; Dr Bowden called per card writer hand; pt ok to transfer to tele bed; will notify [facility]
--- NOTE | 2020-05-23 13:19 | NUR ---
call received from [facility] marissa Grossman; pt to transfer to room 235; report to be called to [phone]
--- NOTE | 2020-05-23 13:25 | NUR ---
[facility] called per travel writer; information provided; ETA 30 minutes
--- NOTE | 2020-05-23 13:39 | NUR ---
spouse Vero called per investment underwriter; updated in ETA for transfer and room number
--- NOTE | 2020-05-23 13:56 | NUR ---
report called to [facility]; direct number provided if any additional information is needed;
--- NOTE | 2020-05-23 14:21 | NUR ---
1400- [facility] on unit; report given 1423- pt discharged with [facility] in stable condition; pt belongings sent with pt
--- NOTE | 2020-05-23 14:51 | NUR ---
PATIENT IS LETHARGIC AND UNABLE TO PARTICIPATE WITH PHYSICAL THERAPY DUE TO DECREASED SENSORIUM AND GENERALIZED WEAKNESS. PT PERFORMED PASSIVE RANGE OF MOTION EXERCISE ON BLE X 10 REPS X 1 SET IN ALL PLANES. JOINT STIFFNESS ON B HIPS, KNEES, AND ANKLES NOTED DUE TO IMMOBILITY. AMPAC = 6
== END 2020-05-23 14:21 | DRG 177 ==
LOC: ED 16:49 → MS2 18:49 → ED-I 18:51 → ED 18:51 → MS2 05-20 20:30 → ICU 05-22 09:30
PROVIDERS: Internal Medicine; Nurse Practitioner; Physician Assistant; ADMIT Internal Medicine; ATTEND Internal Medicine
PROC: 0T9B70Z Drainage of Bladder with Drainage Device, Via Natural or Artificial Opening (ICD-10-PCS; principal; 2020-05-22)
DX: U07.1 COVID-19 (principal); J12.82 Pneumonia due to coronavirus disease 2019; J96.01 Acute respiratory failure with hypoxia; G93.41 Metabolic encephalopathy; N17.9 Acute kidney failure, unspecified; K76.6 Portal hypertension; R18.8 Other ascites; E87.1 Hypo-osmolality and hyponatremia; E87.2 Acidosis; D61.818 Other pancytopenia; K72.90 Hepatic failure, unspecified without coma; I12.9 Hypertensive chronic kidney disease with stage 1 through stage 4 chronic kidney disease, or unspecified chronic kidney disease; E11.22 Type 2 diabetes mellitus with diabetic chronic kidney disease; N18.32 Chronic kidney disease, stage 3b; I25.10 Atherosclerotic heart disease of native coronary artery without angina pectoris; K74.60 Unspecified cirrhosis of liver; I95.9 Hypotension, unspecified; E86.9 Volume depletion, unspecified; D63.1 Anemia in chronic kidney disease; I48.0 Paroxysmal atrial fibrillation; M10.9 Gout, unspecified; H54.8 Legal blindness, as defined in USA; G47.30 Sleep apnea, unspecified; R32 Unspecified urinary incontinence; R15.9 Full incontinence of feces; Z95.5 Presence of coronary angioplasty implant and graft; Z79.84 Long term (current) use of oral hypoglycemic drugs
CPT/HCPCS: G0378; J0692; Q3014